=== PATIENT | female | born 1960 ===

== ENCOUNTER → 2017-03-23 | Outpatient (CLI) | payer BC ==
[2017-03-23 08:39] LABS: Basophils % (A) 1 %; CH 30.8; CHCM 33.2; Eosinophils # (A) 0.5 k/uL (0-0.7); Eosinophils % (A) 9 %; HCT 46.1 % (34.0-46.0); HDW 2.43; HGB 15.1 gm/dL (11.4-16.0); Luc # (Auto) 0.12; Luc % (Auto) 2; Lymphocytes # (A) 1.9 k/uL (1.0-4.8); Lymphocytes % (A) 36 %; MCH 30.5 pg (25.0-35.0); MCHC 32.8 g/dL (31.0-37.0); Mean Platelet Volume 7.3; Monocytes # (A) 0.3 k/uL (0-1.0); Monocytes % (A) 6 %; Neutrophils # (A) 2.3 k/uL (1.3-7.7); Neutrophils % (A) 45 %; RBC 4.96 m/uL (3.80-5.40); RDW 12.7 % (11.5-15.5); WBC 5.1 k/uL (3.8-10.6); WBC (Perox) 4.99
[2017-03-23 09:11] LABS: ALT 34 U/L (9-52); AST 29 U/L (14-36); Alkaline Phosphatase 70 U/L (38-126); Anion Gap 7 mmol/L; Blood Urea Nitrogen 19 mg/dL (7-17); Carbon Dioxide 31 mmol/L (22-30); Chloride 105 mmol/L (98-107); Cholesterol 185 mg/dL (<200); Glucose 91 mg/dL (74-99); HDL Cholesterol 59 mg/dL (40-60); Non-African American GFR(MDRD) >60 (>60 ml/min/1.73 sqM); Potassium 4.4 mmol/L (3.5-5.1); Sodium 143 mmol/L (137-145); Total Bilirubin 0.6 mg/dL (0.2-1.3); Total Protein 6.5 g/dL (6.3-8.2); Triglycerides 132 mg/dL (<150)
[2017-03-23 09:49] LABS: Erythrocyte Sedimentation Rate 2 mm/hr (0-20)
== END | disposition home or self-care (01) ==
LOC: LABWHC1 08:07
PROVIDERS: ATTEND Internal Medicine
DX: E78.2 Mixed hyperlipidemia (principal); I10 Essential (primary) hypertension; R32 Unspecified urinary incontinence
CPT/HCPCS: 36415; 80053; 80061; 85025; 85652

== ENCOUNTER 2017-06-15 10:55 | Emergency (ER) | payer BC, OTHER ==
[2017-06-15 11:01] VITALS: BP 137/64; PULSE 84; RESP 20; TEMP 97.8
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
[2017-06-15] MEDS ORDERED: ACET/COD 300 MG/30 MG STARTER PACK 6 TAB BTL PO STA (11:20)
[2017-06-15] MEDS ORDERED: IBUPROFEN 600 MG STARTER PACK 4 TAB BTL PO STA (11:20)
== END 2017-06-15 11:55 | disposition home or self-care (01) ==
LOC: EC 10:55
DX: T23.212A Burn of second degree of left thumb (nail), initial encounter (principal); T31.0 Burns involving less than 10% of body surface; I10 Essential (primary) hypertension; E78.5 Hyperlipidemia, unspecified; F32.9 Major depressive disorder, single episode, unspecified; Z88.2 Allergy status to sulfonamides; Z88.5 Allergy status to narcotic agent; Z79.899 Other long term (current) drug therapy; Z87.891 Personal history of nicotine dependence; X19.XXXA Contact with other heat and hot substances, initial encounter; Y93.G3 Activity, cooking and baking; Y99.0 Civilian activity done for income or pay; Y92.69 Other specified industrial and construction area as the place of occurrence of the external cause
CPT/HCPCS: 16020; 99283

== ENCOUNTER → 2018-11-26 | Outpatient (CLI) | payer BC ==
[2018-11-26 09:10] LABS: Basophils # (A) 0.1 k/uL (0-0.2); Basophils % (A) 1 %; Eosinophils # (A) 0.4 k/uL (0-0.7); Eosinophils % (A) 8 %; HGB 14.9 gm/dL (11.4-16.0); Lymphocytes # (A) 2.3 k/uL (1.0-4.8); Lymphocytes % (A) 44 %; MCH 29.6 pg (25.0-35.0); MCHC 31.7 g/dL (31.0-37.0); MCV 93.3 fL (80.0-100.0); Mean Platelet Volume 6.8; Monocytes # (A) 0.4 k/uL (0-1.0); Monocytes % (A) 8 %; Neutrophils % (A) 38 %; Platelet Count 324 k/uL (150-450); RBC 5.04 m/uL (3.80-5.40); WBC 5.2 k/uL (3.8-10.6)
[2018-11-26 09:21] LABS: Appearance,Urine Cloudy (Clear); Bacteria,Urine Occasional /hpf; Bilirubin,Urine Negative (Negative); Blood,Urine Negative (Negative); Color,Urine Yellow; Glucose,Urine (UA) Negative (Negative); Ketones,Urine Trace (Negative); Leukocyte Esterase,Urine Large (Negative); Mucus,Urine Rare /hpf; Nitrite,Urine Negative (Negative); Protein,Urine Negative (Negative); Specific Gravity,Urine 1.008 (1.001-1.035); Squamous Epithelial Cell,Urine 13 /hpf (0-4); Urobilinogen,Urine <2.0 mg/dL (<2.0); WBC,Urine 41 /hpf (0-5)
[2018-11-26 16:28] LABS: Albumin 4.4 g/dL (3.80-4.90); Albumin/Globulin Ratio 2.44 (1.60-3.17); Anion Gap 7.7 mmol/L (4.00-12.00); Calcium 9.3 mg/dL (8.7-10.3); Carbon Dioxide 29.3 mmol/L (21.6-31.8); Globulin 1.8 g/dL (1.6-3.3); LDL Cholesterol,Calculated 150.8 mg/dL (0.0-131.0); Potassium 3.9 mmol/L (3.5-5.5); Total Bilirubin 0.7 mg/dL (0.3-1.2); Total Protein 6.2 g/dL (6.2-8.2); VLDL Calculation 30.2 mg/dL (5.00-40.00)
[2018-11-26 16:38] LABS: T4, Free (Free Thyroxine) 1.2 ng/dL (0.80-1.80)
== END | disposition home or self-care (01) ==
LOC: LABWHC1 08:38
PROVIDERS: ATTEND Internal Medicine
DX: E78.2 Mixed hyperlipidemia (principal); H92.02 Otalgia, left ear; I10 Essential (primary) hypertension
CPT/HCPCS: 36415; 80053; 80061; 81001; 84439; 84443; 85025

== ENCOUNTER → 2019-08-14 | Day surgery (SDC) | payer BC ==
[2019-08-12 14:04] VITALS: BMI 36.6
[~2019-08-14] MED LIST: LACTATED RINGERS 1,000 ML IV ONE; LACTATED RINGERS 1,000 ML IV SCH; LIDOCAINE 1% 20 ML VIAL (10MG/ML) FOR IV START INTRADERMA PRN; LIDOCAINE 1% INJ 10MG/ML (20 ML MDV) ONE; PROPOFOL 10 MG/ML 20 ML VIAL IV ONE
[2019-08-14 08:43] VITALS: TEMP 97.6
[2019-08-14 08:53] LABS: Glucose,Whole Blood 80 mg/dL (75-99)
--- NOTE | 2019-08-14 09:29 | P.PCN ---
Date of Procedure: 08/14/19 Procedure(s) Performed: BRIEF HISTORY: Patient is a 59-year-old pleasant female scheduled for an elective colonoscopy as a part of evaluation of prior history of colon polyps. Last colonoscopy was in 2013. PROCEDURE PERFORMED: Colonoscopy. PREOPERATIVE DIAGNOSIS: History of colon polyps. IV sedation per Anesthesia. PROCEDURE: After informed consent was obtained, the patient, was brought into the endoscopy unit. IV sedation was administered by Anesthesia under continuous monitoring. Digital rectal examination was normal. Initially the Olympus CF-160 flexible video colonoscope was then inserted in the rectum, gradually advanced into the cecum without any difficulty. Careful examination was performed as the scope was gradually being withdrawn. Ileocecal valve and the appendiceal orifice were visualized and appeared normal. Prep was excellent. Mucosa of the cecum, ascending colon, transverse colon, descending colon, sigmoid colon, and rectum appeared normal. Scattered sigmoidal diverticulosis Retroflexion was performed in the rectum and no lesions were seen. The patient tolerated the procedure well. IMPRESSION: Normal-appearing colon from rectum to cecum with no evidence of colorectal neoplasia. RECOMMENDATIONS: Findings of this examination were discussed with the patient as well as her family. She was advised to have a repeat screening colonoscopy in 5 years from now because of the prior history of colon polyps..
[2019-08-14 09:47] VITALS: BP 133/70; PULSE 66; RESP 17
== END ==
LOC: ORWHC2ENDO 08:24
PROVIDERS: ATTEND Internal Medicine Gastroenterology
DX: Z12.11 Encounter for screening for malignant neoplasm of colon (principal); K57.30 Diverticulosis of large intestine without perforation or abscess without bleeding; Z86.010 Personal history of colon polyps; I10 Essential (primary) hypertension; F32.9 Major depressive disorder, single episode, unspecified; F41.9 Anxiety disorder, unspecified; Z79.891 Long term (current) use of opiate analgesic; Z79.899 Other long term (current) drug therapy; Z88.5 Allergy status to narcotic agent; Z88.2 Allergy status to sulfonamides
CPT/HCPCS: J2001; J2704; G0105; 45378

== ENCOUNTER → 2019-11-16 | Outpatient (CLI) | payer BC | LOC: LABWHC1 09:35 | PROVIDERS: ATTEND Otolaryngology | DX: J30.89 Other allergic rhinitis (principal) | CPT/HCPCS: 36415; 86001 ==

== ENCOUNTER 2020-05-17 22:41 | Emergency (ER) | payer BC ==
[2020-05-17 22:51] VITALS: RESP 18
[2020-05-17] MEDS ORDERED: SODIUM CHLORIDE 0.9% 1,000 ML IV ONE (23:23)
[2020-05-17] MEDS ORDERED: SODIUM CHLORIDE 0.9% 1,000 ML IV SCH (23:30)
[2020-05-17] MEDS ORDERED: KETOROLAC 15 MG/ML 1 ML VIAL IVP STA (23:41)
[2020-05-18 00:02] LABS: Basophils # (A) 0.1 k/uL (0-0.2); Basophils % (A) 1 %; Eosinophils # (A) 0.1 k/uL (0-0.7); Eosinophils % (A) 1 %; HCT 44.3 % (34.0-46.0); HGB 14.6 gm/dL (11.4-16.0); Lymphocytes # (A) 1.5 k/uL (1.0-4.8); Lymphocytes % (A) 12 %; MCH 30.7 pg (25.0-35.0); MCHC 32.9 g/dL (31.0-37.0); MCV 93.2 fL (80.0-100.0); Mean Platelet Volume 7.3; Monocytes # (A) 0.6 k/uL (0-1.0); Monocytes % (A) 5 %; Neutrophils # (A) 9.7 k/uL (1.3-7.7); Neutrophils % (A) 81 %; Platelet Count 314 k/uL (150-450); RBC 4.75 m/uL (3.80-5.40); RDW 12.9 % (11.5-15.5); WBC 12.1 k/uL (3.8-10.6)
[2020-05-18 00:06] LABS: Amorphous Sediment,Urine Rare /hpf; Appearance,Urine Cloudy (Clear); Bacteria,Urine Rare /hpf; Bilirubin,Urine Negative (Negative); Blood,Urine Negative (Negative); Color,Urine Yellow; Glucose,Urine (UA) Negative (Negative); Ketones,Urine 1+ (Negative); Leukocyte Esterase,Urine Negative (Negative); Mucus,Urine Rare /hpf; Nitrite,Urine Negative (Negative); PH, Urine 6.5 (5.0-8.0); Protein,Urine Negative (Negative); RBC,Urine 8 /hpf (0-5); Specific Gravity,Urine 1.019 (1.001-1.035); Squamous Epithelial Cell,Urine 1 /hpf (0-4); Urobilinogen,Urine <2.0 mg/dL (<2.0); WBC,Urine 4 /hpf (0-5)
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
[2020-05-18 00:11] LABS: Albumin 4.3 g/dL (3.5-5.0); Calcium 9.3 mg/dL (8.4-10.2); Potassium 4.5 mmol/L (3.5-5.1); Total Bilirubin 0.5 mg/dL (0.2-1.3); Total Protein 6.7 g/dL (6.3-8.2)
[2020-05-18] MEDS ORDERED: ONDANSETRON 4 MG/2 ML VIAL IVP STA (00:26)
--- NOTE | 2020-05-18 01:22 | CT ---
EXAMINATION TYPE: CT abdomen pelvis w con DATE OF EXAM: 05/18/2020 COMPARISON: None HISTORY: Lower Abd Pain, Urine Retention CT DLP: 2514.4 mGycm Automated exposure control for dose reduction was used. CONTRAST: Performed with IV Contrast, patient injected with 100 mL of Isovue 300. Lung bases are clear of consolidation. There is no pleural effusion. There is mild subsegmental atele ctasis at the lung bases. Heart is normal. There is no pericardial effusion. Liver gallbladder spleen stomach pancreas appear normal. Bile ducts are not dilated. There is no adrenal mass. Kidneys show satisfactory contrast opacification. There is right-sided hydr onephrosis and hydroureter. There is 4 mm calculus in the distal right ureter. Delayed images show a delayed right side pyelogram. There is normal excretion on the left side. There is 1 cm cortical cyst lower pole left kidney. There is no evidence of a solid renal mass. There is no retroperitoneal abbi opathy. Appendix is posterior and appears normal. There are clips from tubal ligation. There is no inguinal h ernia. Uterus is anteverted. There is no pelvic mass. There is no free fluid in the pelvis. There is Lynn catheter in the urinary bladder. Bladder is empty. There is no mesenteric edema. There is no ascites or free air. There is no bowel obstruction. Lumbar vertebra have fairly normal alignment. Disc spaces are fairly normal. There is a few millimete r anterior subluxation of L4 in relation L5. There is no spondylolysis. Bony pelvis is intact. Hip reagan ints are intact. IMPRESSION: Right-sided hydronephrosis and hydroureter with obstructing calculus in the distal right ureter close to the ureterovesical junction. Minimal sigmoid diverticulosis without diverticulitis. Normal appendix.
[2020-05-18] MEDS ORDERED: TAMSULOSIN 0.4 MG CAP.ER.24H PO STA (01:23)
[2020-05-18] MEDS ORDERED: MORPHINE SULFATE 4 MG/ML SYRINGE IVP STA (01:48)
[2020-05-18 02:03] VITALS: BP 145/84; PULSE 86; TEMP 97.5
[2020-05-18] MEDS ORDERED: ONDANSETRON 4 MG ODT STARTER PACK 2 TAB BTL PO STA (02:13)
== END 2020-05-18 02:55 | disposition home or self-care (01) ==
LOC: EC 22:41
DX: N20.1 Calculus of ureter (principal); R19.7 Diarrhea, unspecified; I10 Essential (primary) hypertension; F41.9 Anxiety disorder, unspecified; F32.9 Major depressive disorder, single episode, unspecified; Z79.899 Other long term (current) drug therapy; Z88.2 Allergy status to sulfonamides; Z88.5 Allergy status to narcotic agent; Z98.51 Tubal ligation status; Z87.891 Personal history of nicotine dependence
CPT/HCPCS: 36415; 80053; 85025; 81001; 74177; 99285; 96374; 96375 ×2; 96361 ×2; J2270; J2405; J1885; S0119; Q9967

== ENCOUNTER 2020-05-20 16:20 | Emergency (ER) | payer BC ==
[2020-05-20 16:55] VITALS: RESP 18
[2020-05-20] MEDS ORDERED: SODIUM CHLORIDE 0.9% 1,000 ML IV STA (17:10)
[2020-05-20] MEDS ORDERED: SODIUM CHLORIDE 0.9% 500 ML 500 ML IV STA (17:10)
[2020-05-20] MEDS ORDERED: KETOROLAC 15 MG/ML 1 ML VIAL IVP STA (17:33)
[2020-05-20] MEDS ORDERED: ONDANSETRON 4 MG/2 ML VIAL IVP STA (17:33)
[2020-05-20 17:59] LABS: Basophils # (A) 0.1 k/uL (0-0.2); Basophils % (A) 1 %; Eosinophils # (A) 0.2 k/uL (0-0.7); Eosinophils % (A) 2 %; HCT 42.1 % (34.0-46.0); HGB 13.9 gm/dL (11.4-16.0); Lymphocytes # (A) 1.5 k/uL (1.0-4.8); Lymphocytes % (A) 14 %; MCH 30.4 pg (25.0-35.0); MCHC 32.9 g/dL (31.0-37.0); MCV 92.3 fL (80.0-100.0); Mean Platelet Volume 7.6; Monocytes # (A) 0.8 k/uL (0-1.0); Monocytes % (A) 8 %; Neutrophils # (A) 7.9 k/uL (1.3-7.7); Neutrophils % (A) 74 %; Platelet Count 272 k/uL (150-450); RBC 4.56 m/uL (3.80-5.40); RDW 12.8 % (11.5-15.5); WBC 10.7 k/uL (3.8-10.6)
[2020-05-20 18:06] LABS: Albumin 4.2 g/dL (3.5-5.0); Calcium 8.8 mg/dL (8.4-10.2); Total Protein 6.7 g/dL (6.3-8.2)
[2020-05-20 18:36] LABS: Appearance,Urine Clear (Clear); Bacteria,Urine Rare /hpf; Bilirubin,Urine Negative (Negative); Blood,Urine Negative (Negative); Color,Urine Light Yellow; Glucose,Urine (UA) Negative (Negative); Ketones,Urine 1+ (Negative); Leukocyte Esterase,Urine Small (Negative); Mucus,Urine Rare /hpf; Nitrite,Urine Negative (Negative); Protein,Urine Negative (Negative); RBC,Urine 1 /hpf (0-5); Squamous Epithelial Cell,Urine 5 /hpf (0-4); Urobilinogen,Urine <2.0 mg/dL (<2.0); WBC,Urine 7 /hpf (0-5)
--- NOTE | 2020-05-20 19:04 | XR ---
EXAMINATION TYPE: XR KUB DATE OF EXAM: 05/20/2020 COMPARISON: NONE HISTORY: Kidney stone. Pain. TECHNIQUE: 2 views upright FINDINGS: There is no sign of intestinal obstruction or pneumoperitoneum. Fecal pattern is normal. Th ere are clips from tubal ligation. There are no pathologic calcifications over the kidneys. There are small phleboliths in the pelvis. Lung bases are clear. IMPRESSION: Nonacute abdomen.
[2020-05-20] MEDS ORDERED: traMADol 50 MG STARTER PACK 3 TAB BTL PO STA (19:29)
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
[2020-05-20 19:40] VITALS: BP 139/82; PULSE 72; TEMP 98.7
== END 2020-05-20 19:39 | disposition home or self-care (01) ==
LOC: EC 16:20
DX: N20.0 Calculus of kidney (principal); F41.9 Anxiety disorder, unspecified; F32.9 Major depressive disorder, single episode, unspecified; E78.5 Hyperlipidemia, unspecified; I10 Essential (primary) hypertension; Z79.899 Other long term (current) drug therapy; Z88.2 Allergy status to sulfonamides; Z88.5 Allergy status to narcotic agent; Z86.69 Personal history of other diseases of the nervous system and sense organs; Z87.891 Personal history of nicotine dependence
CPT/HCPCS: 36415; 80053; 82150; 83690; 85025; 81001; 74018; 99284; 96374; 96375; 96361; J2405; J1885

== ENCOUNTER 2020-05-30 11:47 | Day surgery (SDC) | payer BC ==
[2020-05-27 09:10] VITALS: BMI 38.7
--- NOTE | 2020-05-29 22:18 | P.HPIHPCON ---
History of Present Illness H&P Date: 05/29/20 Ms Garcia is a 60 yo female with hx of 4 mm right sided distal ureteral stone, she has failed medical expulsive therapy. She had two ED presentation for pain secondary to her stones. Surgical option was discussed with her. I discussed the risk and benefit of each approach. she agreed to proceed with right sided ureteroscopy. Discussed with her the risk of bleeding, infection and ureteral injury. She understood all risks and agreed to proceed Consent for Procedure: I have explained the operation/procedure to the patient, including the risks, benefits, side effects, alternative therapies (including not receiving the proposed treatment or service), the likelihood of the patient achieving his/her goals, and potential recuperation problems for the procedure/sedation/analgesia, as well as any blood products, if indicated. I also explained to the patient the risks, benefits and side effects of the alternatives, as well as the risks related to not receiving the proposed procedure, care, treatment, or services. - Constitutional Constitutional: Denies chills, Denies fever Past Medical History Past Medical History: Cancer, Hyperlipidemia, Hypertension, Osteoarthritis (OA), Sleep Apnea/CPAP/BIPAP Additional Past Medical History / Comment(s): HX OF MIGRAINES,hypoglycemia, colon polyps, uses CPAP, past hx. skin cancer, IBS, kidney stones, brain aneurysm-neuro. monitors-has had for 18 yrs. History of Any Multi-Drug Resistant Organisms: None Reported Past Surgical History: Ear Surgery, Orthopedic Surgery, Tubal Ligation, Uterine Ablation Additional Past Surgical History / Comment(s): HAS HAD 2 SX LEFT EAR, HAS A NON METAL IMPLANT. HAS HAD LEFT BREAST BX X2, HAS HAD 2 SX ON LEFT KNEE, RT CARPAL TUNNEL Past Anesthesia/Blood Transfusion Reactions: Postoperative Nausea & Vomiting (PONV) Smoking Status: Former smoker - Past Family History Son(s) Family Medical History: Blood Disorder, Deep Vein Thrombosis (DVT) Father Family Medical History: Cancer Sister(s) Additional Family Medical History / Comment(s): Factor 5 Leiden Medications and Allergies Home Medications Medication Instructions Recorded Confirmed Type Losartan [Cozaar] 50 mg PO QAM 04/02/16 05/27/20 History Multivitamins, Thera [Multivitamin] 1 tab PO DAILY 04/02/16 05/27/20 History Venlafaxine HCl [Effexor XR] 225 mg PO QAM 04/02/16 05/27/20 History Zolpidem [Ambien] 5 mg PO HS 04/02/16 05/27/20 History traMADol HCl [Ultram] 50 mg PO Q6H PRN 04/02/16 05/27/20 History ALPRAZolam [Xanax] 0.25 mg PO HS 08/12/19 05/27/20 History amLODIPine [Norvasc] 5 mg PO HS 08/12/19 05/27/20 History HYDROcodone/APAP 5-325MG [[place] 1 tab PO Q6HR PRN 3 Days #12 tab 05/18/2005/10 Rx 5-325] Ondansetron Odt [Zofran Odt] 4 mg PO Q8HR PRN #12 tab 05/18/20 05/27/20 Rx Tamsulosin [Flomax] 0.4 mg PO DAILY #7 cap 05/18/20 05/27/20 Rx Allergies Allergy/AdvReac Type Severity Reaction Status Date / Time Sulfa (Sulfonamide Allergy Itching/yeast Verified 05/27/20 08:37 Antibiotics) infection morphine AdvReac Nausea & Verified 05/27/20 08:37 Vomiting Surgical - Exam - General well developed, well nourished, no distress, moderate pain - Respiratory normal expansion, normal respiratory effort - Abdomen Abdomen: soft, non tender - Psychiatric oriented to time, oriented to person, oriented to place Assessment and Plan Assessment: 60 yo with hx of 4mm right sided ureteral stone -OR for right sided ureteroscopy, holmium laser lithotripsy, stone basketting and stent placement
[2020-05-30 12:20] VITALS: TEMP 98.1
[2020-05-30] MEDS ORDERED: ONDANSETRON 4 MG/2 ML VIAL ONE (12:35)
[2020-05-30] MEDS: LACTATED RINGERS 1,000 ML IV SCH ×2 (12:37→14:40)
[2020-05-30] MEDS ORDERED: LIDOCAINE 1% (10MG/ML) FOR IV START INTRADERMA ONE (12:37)
[2020-05-30] MEDS ORDERED: DEXAMETHASONE SOD PHOSPHATE 10 MG/ML 1 ML VIAL IV ONE (12:38)
[2020-05-30 12:40] LABS: Glucose,Whole Blood 95 mg/dL (75-99)
[2020-05-30] MEDS ORDERED: LIDOCAINE 1% INJ 10MG/ML (20 ML MDV) ONE (14:43)
[2020-05-30] MEDS ORDERED: ePHEDrine SULFATE/0.9% NACL/PF 50 MG/5 ML SYRINGE IV ONE (14:43)
[2020-05-30] MEDS ORDERED: SUCCINYLCHOLINE CHLORIDE 100 MG/5 ML SYR IV ONE (14:43)
[2020-05-30] MEDS ORDERED: MIDAZOLAM 2 MG/2 ML VIAL ONE (14:43)
[2020-05-30] MEDS ORDERED: fentaNYL (PF) 50 MCG/ML 2 ML AMP ONE (14:43)
[2020-05-30] MEDS ORDERED: PROPOFOL 10 MG/ML 20 ML VIAL IV ONE (14:43)
[2020-05-30] MEDS ORDERED: IOPAMIDOL-370 50ML BTL IRRIGATION ONE (15:20)
--- NOTE | 2020-05-30 15:53 | P.OP ---
Date of Procedure: 05/30/20 Preoperative Diagnosis: right-sided ureteral stone Postoperative Diagnosis: same Procedure(s) Performed: cystoscopy, right ureteroscopy, holmium laser lithotripsy, stone basketing and stent placement Implants: 6-Turkmen by 26 cm stent Anesthesia: ALYSE Surgeon: Rommel Rosen Estimated Blood Loss (ml): 1 Pathology: other (right ureteral calculi) Condition: stable Disposition: PACU Indications for Procedure: Ms Garcia is a 60 yo female with hx of 4 mm right sided distal ureteral stone, she has failed medical expulsive therapy. She had two ED presentation for pain secondary to her stones. Surgical option was discussed with her. I discussed the risk and benefit of each approach. she agreed to proceed with right sided ureteroscopy. Discussed with her the risk of bleeding, infection and ureteral injury. She understood all risks and agreed to proceed Operative Findings: right ureteral stone, in the distal ureter. With ureteral edema at the site of stone Description of Procedure: she was brought to the operating room, general anesthesia was induced. She was prepped and draped in sterile fashion a placement dorsal lithotomy position. A cystoscopy fitted with a 21 sheath was inserted per urethra, cystoscopy was performed showed no abnormality within the bladder. next a semirigid ureteroscope was inserted per urethra, I attempted to advance the ureteroscope up the right ureteral orifice but there was ureteral orifice narrowing. At this time a sensor wire was advanced through the ureteroscope and up into the renal pelvis. The ureteroscope was withdrawn with the wire in place. Next the cystoscope was backloaded over the wire. Next a balloon dilator was passed over the wire and into the distal ureter and dilated under fluoroscopy. Next the balloon dilator was removed with the wire in place. Next a semirigid ureteroscope was inserted per urethra and advanced up the right ureteral orifice, stone was encountered in the distal ureter, there was ureteral edema surrounding the stone. Stone was fragmented into multiple fragments using the holmium laser. The fragments were removed using the stone basket. At this time this ureteroscope was advanced all the way up to the UPJ without any evidence of additional stones, pullback ureteroscopy was performed showed no injury to ureter or sizable ureteral stone fragments. Next a 6-Turkmen by 26cm stent was passed over the wire, the proximal curl was visualized on fluoroscopy and the distal curl was visualized using the cystoscope. The bladder was emptied and the case. The past the patient the posterior was taken to PACU in stable condition
[2020-05-30] MEDS ORDERED: LACTATED RINGERS 1,000 ML IV ONE (16:45)
[2020-05-30] MEDS ORDERED: HYDROmorphone 1 MG/ML 1 ML SYRINGE IVP ONE (16:48)
[2020-05-30 17:12] VITALS: RESP 18
[2020-05-30 17:21] VITALS: BP 135/80; PULSE 87
--- NOTE | 2020-05-30 18:11 | FL ---
EXAMINATION TYPE: FL guidance operating room DATE OF EXAM: 05/30/2020 FLUOROSCOPY Fluoroscopy time of 5 seconds was used during right kidney stone removal utilizing lithotripsy. 2 im age/s document/s the procedure.
== END 2020-05-30 17:56 | disposition home or self-care (01) ==
LOC: OR 11:47
PROVIDERS: ATTEND Urology
DX: N20.1 Calculus of ureter (principal); Z87.442 Personal history of urinary calculi; I10 Essential (primary) hypertension; E78.5 Hyperlipidemia, unspecified; M19.90 Unspecified osteoarthritis, unspecified site; K58.9 Irritable bowel syndrome, unspecified; G47.30 Sleep apnea, unspecified; F41.9 Anxiety disorder, unspecified; F32.9 Major depressive disorder, single episode, unspecified; Z86.010 Personal history of colon polyps; Z85.828 Personal history of other malignant neoplasm of skin; Z98.51 Tubal ligation status; Z98.890 Other specified postprocedural states; Z99.89 Dependence on other enabling machines and devices; Z87.891 Personal history of nicotine dependence; Z88.2 Allergy status to sulfonamides; Z88.5 Allergy status to narcotic agent; Z79.891 Long term (current) use of opiate analgesic; Z79.899 Other long term (current) drug therapy; Z82.49 Family history of ischemic heart disease and other diseases of the circulatory system
CPT/HCPCS: 82365; 52356; C2625; C1894; C1758; C1769; J2250; J1100; J0690; J2405; J2001; J3010; J1170; J0330; J2704; Q9967

== ENCOUNTER → 2020-07-25 | Outpatient (CLI) | payer BC ==
--- NOTE | 2020-07-25 09:36 | US ---
EXAMINATION TYPE: US kidneys/renal and bladder DATE OF EXAM: 07/25/2020 COMPARISON: CT 05/18/20, CLINICAL HISTORY: N20.0 CALCULUS OF KIDNEYS. EXAM MEASUREMENTS: Right Kidney: 11.0 x 5.5 x 5.0 cm Left Kidney: 10.6 x 6.1 x 5.6 cm Post Void Residual Volume: 12.0 mL Right Kidney: No hydronephrosis or masses seen Left Kidney: No hydronephrosis or masses seen, lower pole cyst =1.1 x 1.2 x 0.9cm Bladder: ? debris posterior, right Bilateral Jets seen: Yes Normal Post Void Residual: Yes IMPRESSION: 1. No hydronephrosis or nephrolithiasis. There is suggestion of possible debris within the bladder or bladder wall thickening which potentially could be artifactual. Correlate with urinalysis and cystos copy to exclude other etiologies as clinically warranted.
== END | disposition home or self-care (01) ==
LOC: RADUSWWP 08:57
PROVIDERS: ATTEND Urology
DX: N20.0 Calculus of kidney (principal)
CPT/HCPCS: 76770

== ENCOUNTER → 2020-08-15 | Outpatient (CLI) | payer BC ==
[2020-08-15 09:35] LABS: Basophils % (A) 1 %; Eosinophils # (A) 0.4 k/uL (0-0.7); Eosinophils % (A) 9 %; HCT 44.6 % (34.0-46.0); Lymphocytes # (A) 1.7 k/uL (1.0-4.8); Lymphocytes % (A) 36 %; MCH 31.3 pg (25.0-35.0); MCHC 33.6 g/dL (31.0-37.0); Mean Platelet Volume 7.3; Monocytes # (A) 0.3 k/uL (0-1.0); Monocytes % (A) 7 %; Neutrophils # (A) 2.1 k/uL (1.3-7.7); Neutrophils % (A) 45 %; Platelet Count 287 k/uL (150-450); RBC 4.79 m/uL (3.80-5.40); RDW 12.7 % (11.5-15.5); WBC 4.6 k/uL (3.8-10.6)
[2020-08-15 16:24] LABS: African American GFR (CKD) 91.6 (60.0-200.0); Albumin 4.5 g/dL (3.80-4.90); Albumin/Globulin Ratio 2.65 (1.60-3.17); Anion Gap 10.9 mmol/L (4.00-12.00); BUN/Creat Ratio 22.5 Ratio (12.00-20.00); Calcium 9.2 mg/dL (8.7-10.3); Carbon Dioxide 24.1 mmol/L (21.6-31.8); Chol/HDL Ratio 4.37; Globulin 1.7 g/dL (1.6-3.3); Potassium 4.2 mmol/L (3.5-5.5); Total Bilirubin 0.7 mg/dL (0.3-1.2); Total Protein 6.2 g/dL (6.2-8.2)
== END | disposition home or self-care (01) ==
LOC: LABWHC1 08:43
PROVIDERS: ATTEND Internal Medicine
DX: I10 Essential (primary) hypertension (principal); E78.2 Mixed hyperlipidemia; F51.01 Primary insomnia; F41.8 Other specified anxiety disorders; N20.0 Calculus of kidney; M17.12 Unilateral primary osteoarthritis, left knee
CPT/HCPCS: 36415; 80053; 80061; 84439; 84443; 85025

== ENCOUNTER → 2021-01-26 | Outpatient (CLI) | payer BC ==
[2021-01-26 16:15] LABS: HCT 42.5 % (37.2-46.3); HGB 13.7 g/dL (12.0-15.0); MCHC 32.2 g/dL (32.0-37.0); MCV 96.2 fL (80.0-97.0); Mean Platelet Volume 10.4 fL (9.5-12.2); Platelet Count 296 X 10*3/uL (140-440); RBC 4.42 X 10*6/uL (4.10-5.20); RDW 12.7 % (11.5-14.5); WBC 6.41 X 10*3/uL (4.50-10.00)
== END | disposition home or self-care (01) ==
LOC: LABWHC1 10:01
PROVIDERS: ATTEND Orthopaedic Surgery
DX: M17.12 Unilateral primary osteoarthritis, left knee (principal); I10 Essential (primary) hypertension; E78.5 Hyperlipidemia, unspecified; Z87.891 Personal history of nicotine dependence
CPT/HCPCS: 36415; 85027; 87070

== ENCOUNTER → 2021-02-10 | Outpatient (CLI) | payer BC ==
--- NOTE | 2021-02-10 16:20 | MR ---
MRI CERVICAL SPINE: CLINICAL HISTORY: Cervicalgia. Spondylolisthesis. Disc degeneration C6-C7 level. Radiculopathy. TECHNIQUE: Multiplanar, multisequence imaging of the cervical spine is performed without IV contrast. COMPARISON: None. FINDINGS: Sagittal images of the cervical spine show the craniocervical junction to appear within nor mal limits. The cervical and upper thoracic spinal cord is normal in caliber and signal. Alignment i s straightened with slight grade 1 anterolisthesis C3 on C4 and C5 on C6 and subtle grade 1 retrolist hesis C6 on C7. The vertebral body heights are normal. Mild disc space narrowing C5-C6 level. Mild t o moderate disc space narrowing C6-C7 level The bone marrow signal intensity is within normal limits. Axial images show C2-C3 level to appear within normal limits. Axial images at C3-C4 levels with spondylolisthesis with broad-based posterior disc protrusion mildly effacing anterior thecal sac and causing mild to moderate right-sided neural foraminal narrowing Axial images at C4-C5 level show broad-based posterior disc protrusion and uncovertebral facet degene rative changes, there is mild bilateral neural foraminal narrowing and minimal anterior spinal canal effacement. Axial images at C5-C6 level shows spondylolisthesis with left paracentral disc protrusion, there is e ffacement of anterior thecal sac, there is moderate left and mild right-sided neural foraminal narrow ing. Axial images at C6-C7 level shows a lobulated left paracentral disc protrusion effacing the anterolat eral thecal sac, there is [id number] bilateral neural foraminal narrowing. Axial images at C7-T1 level show left-sided facet arthropathy and ligamentum flavum hypertrophy causi ng moderate left-sided neural foraminal narrowing. IMPRESSION: Straightening of cervical spine with multilevel spondylolisthesis and degenerative change s as detailed above..
--- NOTE | 2021-02-11 06:00 | MR ---
EXAMINATION TYPE: MR brain wo/w con DATE OF EXAM: 02/10/2021 COMPARISON: None HISTORY: Pain in neck, right shoulder, and right arm for years. Checking to make sure symptoms aren't from an aneurysm. CONTRAST: Standard multiplanar, multisequence MRI departmental protocol utilizing 11 mL intravenous Gadavist ga dolinium contrast. Ventricles and sulci appear normal. There is no mass effect nor midline shift. The diffusion images s how no evidence of an acute infarct. Mccauley-white matter structures have overall fairly normal signal p attern for the patient's age. There is no evidence of cerebral edema. There are some tiny 2 to 3 mm f oci of increased signal at the mccauley-white matter junction of both cerebral hemispheres. Total number is approximately 10. Sella turcica appears normal. Corpus callosum appears normal. Pituitary stalk is in the midline. Brai nstem is intact. There is normal enhancement of the venous sinuses. IMPRESSION: There are some tiny scattered white matter high signal foci of uncertain and doubtful significance. O therwise negative MR scan of the brain. No evidence of cortical infarct.
== END | disposition home or self-care (01) ==
LOC: RADMRIMAIN 14:30
PROVIDERS: ATTEND Orthopaedic Surgery Orthopaedic Surgery of the Spine
DX: M43.12 Spondylolisthesis, cervical region (principal); M47.23 Other spondylosis with radiculopathy, cervicothoracic region; M99.71 Connective tissue and disc stenosis of intervertebral foramina of cervical region; M50.123 Cervical disc disorder at C6-C7 level with radiculopathy; R90.82 White matter disease, unspecified
CPT/HCPCS: 70553; 72141; A9585

== ENCOUNTER → 2021-06-30 | Outpatient (CLI) | payer BC ==
[2021-06-30 09:55] LABS: C Reactive Protein <0.5 mg/dL (<1.0)
[2021-06-30 13:01] LABS: Glucose 2 Hour 156 mg/dL
[2021-06-30 19:49] LABS: Protein, Total 6.6 g/dL (6.2-8.2)
== END | disposition home or self-care (01) ==
LOC: LABWHC1 08:24
PROVIDERS: ATTEND Psychiatry & Neurology Neurology
DX: G62.9 Polyneuropathy, unspecified (principal)
CPT/HCPCS: 36415; 82164; 82607; 82947; 82950; 84165; 84207; 84425; 84446; 86140; 86235; 86334

== ENCOUNTER → 2021-10-30 | Outpatient (CLI) | payer BC ==
--- NOTE | 2021-10-30 11:31 | CT ---
EXAMINATION TYPE: CT sinus wo con DATE OF EXAM: 10/30/2021 COMPARISON: 01/10/2016 HISTORY: Chronic sinusitis x [address] DLP: 636.4 mGycm. Automated Exposure Control for Dose Reduction was Utilized. TECHNIQUE: CT scan of the sinuses is performed without contrast, axial images are obtained, coronal r eformatted images are also reviewed. FINDINGS: The paranasal sinuses including the frontal, ethmoid, sphenoid, and maxillary sinuses bila terally are well-aerated without abnormal opacification. The ostiomeatal complex is patent bilateral ly on the coronal images. Postsurgical changes involving the left temporal bone. Dental artifact does limit examination. Nasal septal deviation noted.. The globes are intact bilaterally. Slight asymmetry of the nasopharynx on t he left IMPRESSION: 1. The sinuses are clear and the ostiomeatal complex is patent bilaterally. 2. There is asymmetry of the nasopharynx and fossa of Rosenmuller with greater prominence on the left correlate clinically to exclude mucosal lesion.
[2021-10-31 01:57] LABS: Immunoglobulin A 87.5 mg/dL (60.0-350.0); Immunoglobulin M 38.8 mg/dL (40.0-280.0)
[2021-10-31 12:46] LABS: IgG Subclass 1 386.5 mg/dL (382.40-928.60); IgG Subclass 2 127.5 mg/dL (241.80-700.30); IgG Subclass 3 11.5 mg/dL (21.82-176.00)
== END | disposition home or self-care (01) ==
LOC: RADCTMAIN 10:44
PROVIDERS: ATTEND Otolaryngology
DX: J32.9 Chronic sinusitis, unspecified (principal)
CPT/HCPCS: 70486; 82784; 82787

== ENCOUNTER → 2021-11-17 | Outpatient (CLI) | payer BC ==
[2021-11-17 14:45] LABS: Basophils # (A) 0.04 X 10*3/uL (0.00-0.10); Basophils % (A) 0.7 %; Eosinophils # (A) 0.18 X 10*3/uL (0.04-0.35); Eosinophils % (A) 3.2 %; HCT 43.1 % (37.2-46.3); HGB 14.1 g/dL (12.0-15.0); Immature Grans, Automated 0.5 %; Lymphocytes # (A) 1.68 X 10*3/uL (0.90-5.00); Lymphocytes % (A) 30.3 %; MCH 30.7 pg (27.0-32.0); MCHC 32.7 g/dL (32.0-37.0); MCV 93.9 fL (80.0-97.0); Mean Platelet Volume 10.1 fL (9.5-12.2); Monocytes # (A) 0.54 X 10*3/uL (0.20-1.00); Monocytes % (A) 9.7 %; NRBC Per 100 WBC 0 /100 WBCS (0.0-0.0); Neutrophils # (A) 3.07 X 10*3/uL (1.80-7.70); Neutrophils % (A) 55.6 %; Platelet Count 290 X 10*3/uL (140-440); RBC 4.59 X 10*6/uL (4.10-5.20); RDW 13.1 % (11.5-14.5); WBC 5.54 X 10*3/uL (4.50-10.00)
[2021-11-17 14:53] LABS: Immunoglobulin A 90.8 mg/dL (60.0-350.0)
[2021-11-17 15:12] LABS: Immunoglobulin M 19.6 mg/dL (40.0-280.0)
[2021-11-17 21:08] LABS: Elm IgE <0.10 kU/L; Maple (Box Elder) IgE <0.10 kU/L; Oak IgE <0.10 kU/L; Ragweed,Common IgE <0.10 kU/L
[2021-11-17 21:10] LABS: Cat Epith & Dander IgE <0.10 kU/L; Cladosporian herbarum IgE <0.10 kU/L; Dermato. farinae IgE <0.10 kU/L; Dog Dander IgE <0.10 kU/L
[2021-11-17 21:11] LABS: Aspergillus fumagatus IgE <0.10 kU/L
[2021-11-18 13:45] LABS: T4/T8 Ratio (CD4:CD8) 1.2 (1.0-3.7)
== END | disposition home or self-care (01) ==
LOC: LABWHC1 09:56
PROVIDERS: ATTEND Internal Medicine
DX: J30.9 Allergic rhinitis, unspecified (principal); R53.83 Other fatigue
CPT/HCPCS: 36415; 82784; 82787; 85025; 86003; 86317; 86355; 86357; 86359; 86360

== ENCOUNTER → 2022-01-12 | Outpatient (CLI) | payer BC | END | disposition home or self-care (01) | LOC: LABWHC1 09:50 | PROVIDERS: ATTEND Physician Assistant | DX: R53.83 Other fatigue (principal) | CPT/HCPCS: 36415; 86317 ==

== ENCOUNTER → 2022-03-07 | Outpatient (CLI) | payer BC | END | disposition home or self-care (01) | LOC: LABWHC1 08:47 | PROVIDERS: ATTEND Internal Medicine | DX: R53.83 Other fatigue (principal) | CPT/HCPCS: 36415 ==

== ENCOUNTER → 2022-03-21 | Outpatient (CLI) | payer BC ==
[2022-03-22 01:58] LABS: Immunoglobulin A 83.5 mg/dL (60.0-350.0)
== END | disposition home or self-care (01) ==
LOC: LABWHC1 14:20
PROVIDERS: ATTEND Internal Medicine
DX: R53.83 Other fatigue (principal)
CPT/HCPCS: 36415; 82784

== ENCOUNTER → 2022-08-28 | Outpatient (CLI) | payer BC | END | disposition home or self-care (01) | LOC: LABWHC1 12:02 | PROVIDERS: ATTEND Physician Assistant | DX: R53.83 Other fatigue (principal) | CPT/HCPCS: 36415; 82784 ==

== ENCOUNTER 2022-09-10 09:18 | Emergency (ER) | payer BC ==
[2022-09-10 09:30] VITALS: BP 144/78; TEMP 98.4
--- NOTE | 2022-09-10 09:41 | ED ---
Extremity Problem HPI - General Source: patient, RN notes reviewed Mode of arrival: ambulatory Limitations: no limitations <Jose Charles - Last Filed: 09/10/22 09:40> <El Crawford - Last Filed: 09/10/22 15:29> - General Chief complaint: Extremity Problem,Nontraumatic Stated complaint: Arm swelling and warm, post surgery 1 week ago Time Seen by Provider: 09/10/22 09:29 - History of Present Illness Initial comments: 62-year-old female presents emergency Department chief complaint left arm pain, swelling. Patient states she had an IV on August 31. Patient states she had pain, swelling redness of her forearm. Patient states does not pass out. Denies chest pain no shortness of breath. Patient is concerned about possible DVT. Patient has no history. (Jose Charles) - Related Data Home Medications Medication Instructions Recorded Confirmed Losartan [Cozaar] 50 mg PO QAM 04/02/16 05/30/20 Multivitamins, Thera [Multivitamin] 1 tab PO DAILY 04/02/16 05/30/20 Venlafaxine HCl [Effexor XR] 225 mg PO QAM 04/02/16 05/30/20 Zolpidem [Ambien] 5 mg PO HS 04/02/16 05/30/20 traMADol HCl [Ultram] 50 mg PO Q6H PRN 04/02/16 05/30/20 ALPRAZolam [Xanax] 0.25 mg PO HS 08/12/19 05/30/20 amLODIPine [Norvasc] 5 mg PO HS 08/12/19 05/30/20 Previous Rx's Medication Instructions Recorded HYDROcodone/APAP 5-325MG [[place] 1 tab PO Q6HR PRN 3 Days #12 tab 05/18/20 5-325] Ondansetron Odt [Zofran Odt] 4 mg PO Q8HR PRN #12 tab 05/18/20 Tamsulosin [Flomax] 0.4 mg PO DAILY #7 cap 05/18/20 Cephalexin [Keflex] 500 mg PO Q8HR #9 cap 05/30/20 Ketorolac [Toradol] 10 mg PO Q6HR PRN #15 tab 05/30/20 Cephalexin [Keflex] 500 mg PO Q6HR 3 Days #12 cap 09/10/22 Allergies Allergy/AdvReac Type Severity Reaction Status Date / Time amlodipine [From [facility]] Allergy Rash/Hives Verified 09/10/22 09:30 Sulfa (Sulfonamide Allergy Itching/yeast Verified 09/10/22 09:30 Antibiotics) infection morphine AdvReac Nausea & Verified 09/10/22 09:30 Vomiting Review of Systems ROS Other: All systems not noted in ROS Statement are negative. <Jose Charles - Last Filed: 09/10/22 09:40> ROS Other: All systems not noted in ROS Statement are negative. <El Crawford - Last Filed: 09/10/22 15:29> ROS Statement: Those systems with pertinent positive or pertinent negative responses have been documented in the HPI. Past Medical History Past Medical History: Cancer, Hyperlipidemia, Hypertension, Osteoarthritis (OA), Sleep Apnea/CPAP/BIPAP Additional Past Medical History / Comment(s): HX OF MIGRAINES,hypoglycemia, colon polyps, uses CPAP, past hx. skin cancer, IBS, kidney stones, brain aneurysm-neuro. monitors-has had for 18 yrs. History of Any Multi-Drug Resistant Organisms: None Reported Past Surgical History: Ear Surgery, Orthopedic Surgery, Tubal Ligation, Uterine Ablation Additional Past Surgical History / Comment(s): HAS HAD 2 SX LEFT EAR, HAS A NON METAL IMPLANT. HAS HAD LEFT BREAST BX X2, HAS HAD 2 SX ON LEFT KNEE, RT CARPAL TUNNEL Past Anesthesia/Blood Transfusion Reactions: Postoperative Nausea & Vomiting (PONV) Past Psychological History: Anxiety, Depression Smoking Status: Former smoker Past Alcohol Use History: None Reported Past Drug Use History: None Reported - Past Family History Son(s) Family Medical History: Blood Disorder, Deep Vein Thrombosis (DVT) Father Family Medical History: Cancer Sister(s) Additional Family Medical History / Comment(s): Factor 5 Leiden <Jose Charles - Last Filed: 09/10/22 09:40> General Exam Limitations: no limitations <Jose Charles - Last Filed: 09/10/22 09:40> General appearance: alert, in no apparent distress Head exam: Present: atraumatic Eye exam: Absent: scleral icterus, conjunctival injection, periorbital swelling Respiratory exam: Present: normal lung sounds bilaterally. Absent: respiratory distress, accessory muscle use Cardiovascular Exam: Present: regular rate Left Elbow exam: Present: full ROM. Absent: tenderness Forearm Wrist exam: Present: full ROM, tenderness, swelling, erythema. Absent: abrasion, laceration, ecchymosis, deformity, crepitus, dislocation, tenderness over anatomical snuff box Hand Wrist exam: Present: full ROM. Absent: tenderness Neuro motor exam: Present: wrist extension intact, thumb opposition intact, thumb IP flexion intact, thumb adduction intact, fingers 2-5 abduction intact Neurosensory exam: Present: radial nerve intact, ulnar nerve intact, median nerve intact Vascular: Present: normal capillary refill, radial pulse. Absent: vascular compromise Neurological exam: Present: alert, oriented X3 Psychiatric exam: Present: normal affect, normal mood Skin exam: Present: warm, dry, normal color. Absent: cyanosis, diaphoretic, petechiae, pallor <El Crawford - Last Filed: 09/10/22 15:29> Course Vital Signs 09/10/22 09/10/22 09:27 12:28 Temperature 98.4 F Pulse Rate 72 82 Respiratory 20 18 Rate Blood Pressure 144/78 O2 Sat by Pulse 96 97 Oximetry Medical Decision Making <El Crawford - Last Filed: 09/10/22 15:29> - Medical Decision Making Patient presents with left forearm swelling after IV insertion to her left hand on . IV was placed during outpatient lumpectomy and lymph node removal for breast cancer. States noticed the swelling on the with some redness going up her arm. No fevers, full range of motion, capillary refill less than 2 seconds. Patient has full range of motion of the hand wrist and forearm. No fevers. Ultrasound negative for DVT. Patient states is immune compromised taking Hizentra for immune deficiency. Redness is consistent with superficial thrombophlebitis however she is concerned for infection. She will be placed on Keflex for possible cellulitis. Directed to follow up with her primary care doctor this week. Patient also agreeable to this plan of care. Case discussed with Dr. Carroll. Was pt. sent in by a medical professional or institution? @No Did you speak to anyone other than the patient for history? @No Did you review nursing and triage notes? @Yes I agree Were old charts reviewed? @No Differential Diagnosis? @Thrombophlebitis, DVT, cellulitis, muscle strain EKG interpreted by me (3pts min.)? @ [none] X-rays interpreted by me (1pt min.)? @ [none] CT interpreted by me (1pt min.)? @ [none] U/S interpreted by me (1pt. min.)? @Yes, no evidence of obstructed blood flow or DVT. Radiologist interpretation no evidence of left forearm DVT. What testing was considered but not performed? (CT, X-rays, U/S, labs)? Why? @No What meds were considered but not given? Why? @None Did you discuss the management of the patient with other professionals? @No Did you reconcile home meds? @No Was smoking cessation discussed for >3mins.? @Nonsmoker Was critical care preformed (if so, how long)? @No Were there social determinants of health that impacted care today? How? (Homelessness, low income, unemployed, alcoholism, drug addiction, transportation, low edu. Level, literacy, decrease access to med. care, long-term, rehab)? @None Was there de-escalation of care discussed even if they declined? (Discuss DNR or withdrawal of care, Hospice)? @No What co-morbidities impacted this encounter? (DM, HTN, Smoking, COPD, CAD, Cancer, CVA, Hep., AIDS, mental health diagnosis, sleep apnea, morbid obesity)? @Immune compromise, hypertension, breast cancer Was patient admitted / discharged? @Discharged Undiagnosed new problem with uncertain prognosis? @ [none] Drug Therapy requiring intensive monitoring for toxicity (Heparin, Nitro, Insulin, Cardizem)? @No Were any procedures done? @No Diagnosis/symptom? @Superficial thrombophlebitis Acute, or Chronic, or Acute on Chronic? @Acute Uncomplicated (without systemic symptoms) or Complicated (systemic symptoms)? @Uncomplicated Side effects of treatment? @ [none] Exacerbation, Progression, or Severe Exacerbation] @ [no] Poses a threat to life or bodily function? @ [no] (El Crawford) Disposition <Jose Charles - Last Filed: 09/10/22 09:40> Is patient prescribed a controlled substance at d/c from ED?: No Time of Disposition: 11:24 <El Crawford - Last Filed: 09/10/22 15:29> Clinical Impression: Thrombophlebitis of arm, left Disposition: HOME SELF-CARE Condition: Good Additional Instructions: Continue Tylenol and Motrin for pain. Follow-up with the primary care doctor this week. Prescriptions: Cephalexin [Keflex] 500 mg PO Q6HR 3 Days #12 cap Referrals: Nonstaff,Physician [Primary Care Provider] - 1-2 days
--- NOTE | 2022-09-10 10:46 | US ---
EXAMINATION TYPE: US venous doppler duplex UE LT DATE OF EXAM: 09/10/2022 COMPARISON: NONE CLINICAL HISTORY: Pain,swelling, recent IV. Pain SIDE PERFORMED: Left Left Arm: Negative for DVT, Grayscale, color doppler, spectral doppler imaging performed of the deep veins of the upper extremities. There is normal flow, compressibility and vascular waveforms. IMPRESSION: No evidence of left lower extremity deep vein thrombosis.
[2022-09-10 12:29] VITALS: PULSE 82; RESP 18
== END 2022-09-10 12:28 | disposition home or self-care (01) ==
LOC: EC 09:18
DX: I80.8 Phlebitis and thrombophlebitis of other sites (principal); I10 Essential (primary) hypertension; M19.90 Unspecified osteoarthritis, unspecified site; G47.30 Sleep apnea, unspecified; F41.9 Anxiety disorder, unspecified; F32.A Depression, unspecified; Z87.891 Personal history of nicotine dependence; Z79.1 Long term (current) use of non-steroidal anti-inflammatories (NSAID); Z88.8 Allergy status to other drugs, medicaments and biological substances; Z88.2 Allergy status to sulfonamides; Z88.5 Allergy status to narcotic agent; Z79.899 Other long term (current) drug therapy
CPT/HCPCS: 99283

== ENCOUNTER → 2022-12-06 | Outpatient (CLI) | payer BC ==
[2022-12-06 15:46] LABS: Immunoglobulin A 60.7 mg/dL (60.0-350.0)
[2022-12-06 15:55] LABS: Immunoglobulin M <25.0 mg/dL (40.0-280.0)
== END | disposition home or self-care (01) ==
LOC: LABWHC1 09:37
PROVIDERS: ATTEND Physician Assistant
DX: R53.83 Other fatigue (principal)
CPT/HCPCS: 36415; 82784

== ENCOUNTER → 2023-05-01 | Outpatient (CLI) | payer BC ==
[2023-05-01 20:01] LABS: Immunoglobulin A 72.9 mg/dL (60.0-350.0)
[2023-05-01 20:13] LABS: Immunoglobulin M <35.0 mg/dL (40.0-280.0)
== END | disposition home or self-care (01) ==
LOC: LABWHC1 12:20
PROVIDERS: ATTEND Physician Assistant
DX: R53.83 Other fatigue (principal)
CPT/HCPCS: 36415; 82784

== ENCOUNTER → 2023-07-18 | Outpatient (CLI) | payer BC, MEDICARE ==
[2023-07-18 14:29] LABS: INR 0.9 (<1.2); Partial Thromboplastin Time 21.4 sec (22.0-30.0); Prothrombin Time 10.2 sec (10.0-12.5)
[2023-07-18 21:41] LABS: ALT 15 U/L (8-44); AST 30 U/L (13-35); Albumin 4.3 g/dL (3.8-4.9); Albumin/Globulin Ratio 1.72 Ratio (1.60-3.17); Alkaline Phosphatase 84 U/L (41-126); BUN/Creat Ratio 24.43 Ratio (12.00-20.00); Blood Urea Nitrogen 17.1 mg/dL (9.0-27.0); Calcium 9.7 mg/dL (8.7-10.3); Carbon Dioxide 24.9 mmol/L (21.6-31.8); Chloride 104 mmol/L (96-109); Globulin 2.5 g/dL (1.6-3.3); Glucose 93 mg/dL (70-110); Potassium 4.7 mmol/L (3.5-5.5); Sodium 143 mmol/L (135-145); Total Bilirubin 0.5 mg/dL (0.3-1.2); Total Protein 6.8 g/dL (6.2-8.2)
[2023-07-18 21:48] LABS: HCT 46.9 % (37.2-46.3); HGB 15.1 g/dL (12.0-15.0); MCH 30.7 pg (27.0-32.0); MCHC 32.2 g/dL (32.0-37.0); MCV 95.3 FL (80.0-97.0); NRBC Per 100 WBC 0 X 10*3/uL (0.00-0.01); Platelet Count 337 X 10*3/uL (140-440); RBC 4.92 X 10*6/uL (4.10-5.20); RDW 12.6 % (11.5-14.5); WBC 4.63 X 10*3/uL (4.50-10.00)
[2023-07-19 04:56] LABS: Appearance,Urine Clear (Clear); Bilirubin,Urine Negative (Negative); Blood,Urine Negative (Negative); Color,Urine Yellow (Yellow); Ketones,Urine Negative (Negative); Nitrite,Urine Negative (Negative); Specific Gravity,Urine 1.017 (1.001-1.030)
== END | disposition home or self-care (01) ==
LOC: LABPAT 11:02
PROVIDERS: ATTEND Orthopaedic Surgery
DX: Z01.812 Encounter for preprocedural laboratory examination (principal); M16.12 Unilateral primary osteoarthritis, left hip
CPT/HCPCS: 80053; 81003; 85027; 85610; 85730; 86850; 86900; 86901; 87070

== ENCOUNTER → 2023-07-24 | Outpatient (CLI) | payer MEDICARE ==
--- NOTE | 2023-07-24 13:22 | XR ---
EXAMINATION TYPE: XR KUB DATE OF EXAM: 07/24/2023 COMPARISON: 05/20/2020 INDICATION: Renal calculus lower abdominal pain TECHNIQUE: Single view abdomen FINDINGS: There is a normal bowel gas pattern. Psoas margins are normal. No organomegaly is present. No renal or ureteral stones are identified. Phleboliths appear to be within the pelvis. Surgical clip s are within the pelvis. IMPRESSION: 1. Unremarkable Abdomen
== END | disposition home or self-care (01) ==
LOC: RADXRMAIN 12:26
PROVIDERS: ATTEND Urology
DX: N20.0 Calculus of kidney (principal)
CPT/HCPCS: 74018

== ENCOUNTER 2023-07-29 05:35 | Day surgery (SDC) | payer MEDICARE, BC ==
[~2023-07-29 05:35] MED LIST changes: +ACETAMINOPHEN TAB 500 MG TAB PO PRN; +GABAPENTIN 300 MG CAP PO PRN; -LACTATED RINGERS 1,000 ML IV ONE; -LACTATED RINGERS 1,000 ML IV SCH; -LIDOCAINE 1% 20 ML VIAL (10MG/ML) FOR IV START INTRADERMA PRN; -LIDOCAINE 1% INJ 10MG/ML (20 ML MDV) ONE; +MELOXICAM 7.5 MG TAB PO PRN; -PROPOFOL 10 MG/ML 20 ML VIAL IV ONE; +TRANEXAMIC 1,000 MG/100ML-NACL 1,000 MG in SALINE 1 100ML.BAG IVPB PRN
[2023-07-29] MEDS ORDERED: DEXAMETHASONE SOD PHOSPHATE 4 MG/ML 1 ML VIAL IV ONE (05:40)
[2023-07-29] MEDS ORDERED: ONDANSETRON 4 MG/2 ML VIAL IVP ONE (05:40)
[2023-07-29] MEDS: LACTATED RINGERS 1,000 ML IV SCH (06:02)
[2023-07-29 06:39] LABS: Glucose,Whole Blood 101 mg/dL (70-110)
[2023-07-29] MEDS ORDERED: MIDAZOLAM 2 MG/2 ML VIAL IVP ONE (06:45)
[2023-07-29] MEDS ORDERED: fentaNYL (PF) 50 MCG/ML 2 ML AMP IV PRN (07:00)
[2023-07-29] MEDS ORDERED: MIDAZOLAM 2 MG/2 ML VIAL IV PRN (07:00)
[2023-07-29] MEDS ORDERED: ceFAZolin 1,000 MG in SODIUM CHLORIDE 0.9% 1,000 ML IRRIGATION ONE (07:04)
--- NOTE | 2023-07-29 07:29 | P.ANPRN ---
Procedure Note - Anesthesia - Nerve Block Performed Left Benjamin Single Time Out Performed: Yes Date of Procedure: 07/29/23 Procedure Start Time: 06:44 Procedure Stop Time: 06:49 Location of Patient: PreOp Indication: Acute Post-Operative Pain, Requested by Surgeon Sedation Type: Sedate with meaningful contact maintained Preparation: Sterile Prep Position: Supine Catheter: None Needle Types: Pajunk Needle Gauge: 21 Ultrasound used to visualize needle placement: Yes Ultrasound used to observe medication spread: Yes Injectate: 0.5% Ropivacaine (see comment for volume) (Ropiv 10 ml+NS 10ml) Blood Aspirated: No Pain Paresthesia on Injection Noted: No Resistance on Injection: Normal Image Stored and Saved: Yes Events: Uneventful and Well Tolerated
[2023-07-29] MEDS ORDERED: ROPIVACAINE 5 MG/ML 30 ML VIAL MISCELLANE ONE ×2 (07:33→08:24)
[2023-07-29] MEDS ORDERED: LACTATED RINGERS 1,000 ML IV ONE (08:11)
--- NOTE | 2023-07-29 08:29 | P.OP ---
Date of Procedure: 07/29/23 Preoperative Diagnosis: Severe osteoarthritis left hip Postoperative Diagnosis: Severe osteoarthritis left hip Procedure(s) Performed: Left total hip arthroplasty with a direct anterior approach Implants: [employer] Polarstem standard size 3 with a collar [employer] R3, 3 hole hemispherical acetabular shell, 50 mm [employer] Reflection 6.5 mm cancellus screw, 20 mm 2 [employer] R3, XLPE 20 acetabular liner [employer]hew Oxinium femoral head 36 m, +0 All components were press-fit. The articulation is Oxinium on polyethylene. Anesthesia: spinal Surgeon: Jose Balderas Corrugated Sheet Material Sheeter #1: Brittany Granda Estimated Blood Loss (ml): 500 Pathology: none sent Condition: stable Disposition: PACU Indications for Procedure: After failure of conservative treatment we discussed the surgical and nonsurgic al treatment options at length. Patient wishes to proceed with a total hip arthroplasty with a direct anterior approach. Complications specific to this procedure were discussed at length, including but not limited to infection, leg length discrepancy, dislocation, nerve injury, and fracture. Covid-19 was also discussed at length with the patient, and they are aware of the current policies and procedures. The patient was given the option of delaying surgery, but they elect to proceed knowing these risks. Patient is aware of all these complications and informed consent was obtained Operative Findings: The operative findings are consistent with severe osteoarthritis of the left hip Description of Procedure: The patient was seen and evaluated in the preoperative area and the consent was reviewed. The operative site was marked with a skin marker. The patient verified the procedure and operative site. A ELIEL block was placed by anesthesia in the preoperative area. The patient was then brought to the operating room and given preoperative antibiotics intravenously. 1 g of Tranexamic acid was also given intravenously. A spinal anesthetic was administered by the anesthesia department. The patient was then placed on the Nicolaus table with the bony prominences well-padded. The hip area was then prepped with a ChloraPrep solution and draped in the usual sterile fashion. A universal timeout was then performed, which confirmed the patient's name, surgical site, ALLERGIES, and procedure being performed on the consent. Next the incision site was located at 1 cm distal and 4 cm lateral to the anterior superior iliac spine. The skin and subcutaneous tissues were sharply incised. Incision was carefully dissected down to the fascia overlying the tensor fascia nilda muscle. This fascia was then incised in line with the muscle fibers. Care was taken to stay laterally in order to avoid injuring the lateral femoral cut aneous nerve. Next, using blunt finger dissection, the tensor fascia nilda muscle was dissected off its investing fascia. The muscle was then carefully retracted laterally with a cobra retractor over the lateral neck of the femur. Next, the circumflex vessels were identified and cauterized using the Aquamantis device. The anterior hip capsule was then exposed. The capsule was then opened and an inverted T fashion. The retractors were then placed intracapsularly. The retractors were maintained intracapsular throughout the procedure. The proximal femur was then visualized. Fluoroscopic x-rays were then taken in order to evaluate the preoperative leg lengths. A small amount of traction was placed on the leg. The femoral neck was then osteotomized at the appropriate level above the lesser trochanter. A small wedge of bone was then removed from the remaining femoral head. Next, using a corkscrew the femoral head was removed from the acetabulum. On gross visual inspection, the femoral head had complete loss of articular cartilage and multiple periarticular osteophytes. The femoral head was then measured. Attention was then turned to the acetabulum. The acetabulum was exposed and any remaining labrum was excised. Sequential reaming of the acetabulum was performed using fluoroscopic guidance until there was a good bed of bleeding cancellus bone. When the appropriate size was reached, a trial was then placed. The position and fit of the trial was checked with fluoroscopy. The trial was then removed. Then, using fluoroscopic guidance, the final implant was impacted at 20 of anteversion and 40 of abduction, and fully seated in the acetabulum. 2 screws were then placed in the acetabulum. Again fluoroscopy was used to check position of the screws. Next, the liner was then impacted, with a 20 elevated liner located in the anterior superior quadrant. Component locking was confirmed. Attention was then directed to the femur. With the aid of the Nicolaus table, the femur was externally rotated to approximately 130, extended, and adducted under the opposite leg. A side hook was then placed under the proximal femur, and the side hook elevator was used to elevate the proximal femur while releasing the capsule. Retractors were then placed. A capsular release was performed, as well as a release of the conjoined tendon, which afforded excellent visual ization of the proximal femur. Next, a box osteotome was used to lateralize the proximal femur. A broke handler was then used to locate the femoral canal. Sequential broaching was then performed with appropriate size which afforded excellent fixation in the proximal femur. A trial was then placed with appropriate head and neck, and the hip was gently reduced with the aid of the Nicolaus table. Fluoroscopy was then used to check position of the components, as well as to evaluate the leg lengths and offset. The leg lengths and offset were measured as closely as possible to ensure stability of the hip. The hip was then gently dislocated and the trials were then removed. Final implants were then impacted and the hip was again reduced. Final fluoroscopic x-rays confirmed that the components were in anatomic position. The leg lengths and offset were measured and were found to coincide with the trial measurements. The hip was also taken through range of motion, and found to be stable. The hip was then copiously irrigated with antibiotic solution with pulsatile lavage. The hip was then irrigated with Irrisept solution. The soft tissues were then injected with a ropivacaine solution. A second dose of 1 g of Tranexamic acid was also given intravenously. The fascia was then closed with 2-0 strata fix suture. The subcutaneous tissue was closed with 3-0 Vicryl. The subcuticular tissue was closed with 3-0 strata fix suture. The skin was then closed with Exofin skin glue. After the glue and dried, and Optifoam silver impregnated dressing was applied. The patient was then transferred to the recovery room in stable condition. The promotions assistant BATSHEVA Campos was required due to the complexity of surgery, and the need for skilled manager surgical for positioning, draping, exposure, retraction, and closure of the wound.
[2023-07-29] MEDS ORDERED: MAGNESIUM HYDROXIDE 2,400 MG/30 ML CUP PO PRN (08:55)
[2023-07-29] MEDS ORDERED: HYDROmorphone 0.5 MG/0.5 ML SYRINGE IVP PRN ×2 (08:55)
[2023-07-29] MEDS ORDERED: ONDANSETRON 4 MG/2 ML VIAL IVP PRN (08:55)
[2023-07-29] MEDS ORDERED: NALOXONE 0.4 MG/ML 1 ML VIAL IV PRN (08:55)
--- NOTE | 2023-07-29 08:55 | FL ---
Intraoperative/procedural fluoroscopic services were provided. Total fluoroscopy time is 17 seconds w ith a total of 3 submitted images to PACS. Please see the operative/procedural note for further detai ls. DAP: 402.66 Gycm2
[2023-07-29] MEDS ORDERED: HYDROcodone/APAP 7.5-325MG 1 EACH TAB PO PRN (08:57)
--- NOTE | 2023-07-29 09:25 | XR ---
EXAMINATION TYPE: XR Hip Limited LT DATE OF EXAM: 07/29/2023 CLINICAL HISTORY: Postoperative evaluation TECHNIQUE: Single portable view of the left hip was submitted. FINDINGS: Noted are changes of total hip arthroplasty with femoral and acetabular components appearin g well seated. Alignment is anatomic. Postsurgical soft tissue changes are evident. IMPRESSION: Satisfactory postoperative alignment
[2023-07-29] MEDS: HYDROmorphone 0.5 MG/0.5 ML SYRINGE IVP PRN ×4 (09:44→20:13)
[2023-07-29] MEDS: SODIUM CHLORIDE 0.9% 1,000 ML IV SCH (15:15)
[2023-07-29] MEDS ORDERED: ALPRAZolam 0.25 MG TAB PO PRN (16:07)
[2023-07-29] MEDS ORDERED: ZOLPIDEM 5 MG TAB PO PRN (16:07)
--- NOTE | 2023-07-29 17:15 | P.CONS ---
History of Present Illness - Reason for Consult Consult date: 07/29/23 - History of Present Illness 63-year-old female with PMH of HTN, insomnia, anxiety presents to [facility] for elective surgery. He underwent direct anterior left total hip arthroplasty with Dr. Balderas. She was seen and examined post operatively. Able to urinate. Pain 9/10 in severity, worsened with movement. No bowel movement but passing gas. She has no complaints. Pertinent positives and negatives as discussed in HPI, a complete review of systems was performed and all other systems are negative. General: non toxic, no distress, appears at stated age Derm: warm, dry Head: atraumatic, normocephalic, symmetric Eyes: EOMI, no lid lag, anicteric sclera Cardiovascular: S1S2 reg, no murmur Lungs: CTA bilateral, no rhonchi, no rales , no accessory muscle use Ext: no gross muscle atrophy, no edema, no contractures Neuro: no focal neuro deficits Psych: Alert, oriented, appropriate affect HTN Insomnia Anxiety Based on my assessment of this patient, this patient meets a moderate complexity level of care. HTN: Labetalol 100 mg PO BID. Losartan 100 mg PO QD. Insomnia: Ambien 5 mg PO QHS PRN. Anxiety: Xanax 0.25 mg PO QHS PRN. Effexor 150 mg PO QAM. CODE STATUS: FULL CODE. DVT Prophylaxis: ASA GI Prophylaxis: Designated medical POA if patient is not able to make medical decisions for themselves: I have reviewed the following resourcing consultant notes: Orthopedic surgery ntoe. I have reviewed the results of the following tests: POC glucose. I have ordered the following tests: Agree with CBC. I have discussed the care of this patient with the following independent historian: Discussed with RN. I have independently interpreted the following test below: I have discussed the management of this patient with the following physician: Past Medical History Past Medical History: Cancer, Hyperlipidemia, Hypertension, Osteoarthritis (OA), Sleep Apnea/CPAP/BIPAP Additional Past Medical History / Comment(s): HX OF MIGRAINES,hypoglycemia, colon polyps, uses CPAP, past hx. skin cancer, IBS, kidney stones, brain aneurysm-neuro. monitors-has had for 18 yrs. History of Any Multi-Drug Resistant Organisms: None Reported Past Surgical History: Ear Surgery, Orthopedic Surgery, Tubal Ligation, Uterine Ablation Additional Past Surgical History / Comment(s): HAS HAD 2 SX LEFT EAR, HAS A NON METAL IMPLANT. HAS HAD LEFT BREAST BX X2, HAS HAD 2 SX ON LEFT KNEE, RT CARPAL TUNNEL Past Anesthesia/Blood Transfusion Reactions: Postoperative Nausea & Vomiting (PONV) Past Psychological History: Anxiety, Depression Smoking Status: Former smoker Past Alcohol Use History: None Reported Additional Past Alcohol Use History / Comment(s): QUIT SMOKING 1997, STARTED SMOKING AGE 16(1975) SMOKED 1PPD Past Drug Use History: None Reported - Past Family History Son(s) Family Medical History: Blood Disorder, Deep Vein Thrombosis (DVT) Father Family Medical History: Cancer Sister(s) Additional Family Medical History / Comment(s): Factor 5 Leiden Medications and Allergies Home Medications Medication Instructions Recorded Confirmed Type Venlafaxine HCl [Effexor XR] 150 mg PO QAM 04/02/16 07/29/23 History Zolpidem [Ambien] 5 mg PO HS PRN 04/02/16 07/29/23 History traMADol HCl [Ultram] 50 mg PO Q6H PRN 04/02/16 07/29/23 History ALPRAZolam [Xanax] 0.25 mg PO HS PRN 08/12/19 07/29/23 History Fluticasone Nasal [place] [Flonase 2 spray EA NOSTRIL DAILY 07/23/23 07/29/23 History Nasal [place]] Labetalol [Trandate] 100 mg PO BID 07/23/23 07/29/23 History Letrozole [Femara] 2.5 mg PO DAILY 07/23/23 07/29/23 History Olmesartan Medoxomil [Benicar] 20 mg PO DAILY 07/23/23 07/29/23 History Aspirin 325 mg PO BID #60 tab 07/29/23 Rx HYDROcodone/APAP 7.5-325MG [[place] 1 - 2 tab PO Q6H PRN #32 tab 07/29/23 Rx 7.5-325] Sennosides [Senokot] 2 tab PO DAILY PRN #60 tablet 07/29/23 Rx Allergies Allergy/AdvReac Type Severity Reaction Status Date / Time amlodipine [From [facility]] Allergy Rash/Hives Verified 07/23/23 15:01 Sulfa (Sulfonamide Allergy Itching/yeast Verified 07/23/23 15:01 Antibiotics) infection morphine AdvReac Nausea & Verified 07/23/23 15:01 Vomiting Physical Exam Vitals: Vital Signs Temp Pulse Pulse Resp BP BP BP 07/29/23 13:50 98.4 F 74 18 100/62 07/29/23 12:27 69 141/74 07/29/23 12:13 72 120/56 07/29/23 11:56 65 122/80 07/29/23 11:41 65 119/79 07/29/23 11:26 63 126/76 07/29/23 11:11 67 125/81 07/29/23 10:57 65 122/68 07/29/23 10:42 65 117/71 07/29/23 10:27 97.7 F 65 18 114/79 07/29/23 10:00 58 L 16 109/68 07/29/23 09:45 59 L 16 122/64 07/29/23 09:30 58 L 16 105/56 07/29/23 09:15 57 L 16 103/56 07/29/23 09:00 58 L 14 98/53 07/29/23 08:51 98.2 F 60 12 99/46 07/29/23 06:57 55 L 18 131/62 07/29/23 06:14 97.2 F L 77 18 134/63 Pulse Ox 07/29/23 13:50 95 07/29/23 12:27 97 07/29/23 12:13 95 07/29/23 11:56 95 07/29/23 11:41 97 07/29/23 11:26 97 07/29/23 11:11 98 07/29/23 10:57 98 07/29/23 10:42 98 07/29/23 10:27 99 07/29/23 10:00 98 07/29/23 09:45 98 07/29/23 09:30 100 07/29/23 09:15 99 07/29/23 09:00 96 07/29/23 08:51 95 07/29/23 06:57 97 07/29/23 06:14 95 Intake and Output 07/29/23 07/29/23 07/29/23 06:59 14:59 22:59 Intake Total 300 1251 Output Total 500 Balance 300 751 Intake: IV 300 1251 Output: Estimated Blood Loss 500 Other: Weight 102 kg 102 kg
[2023-07-29] MEDS: HYDROcodone/APAP 7.5-325MG 1 EACH TAB PO PRN (17:47)
[2023-07-29] MEDS: ASPIRIN 325 MG TAB PO SCH (20:12)
[2023-07-29] MEDS ORDERED: LABETALOL 100 MG TAB PO SCH (21:00)
[2023-07-29] MEDS ORDERED: SENNOSIDES-DOCUSATE SODIUM 1 EACH TAB PO SCH (21:00)
[2023-07-30] MEDS: SODIUM CHLORIDE 0.9% 1,000 ML IV SCH ×2 (00:35→03:47)
[2023-07-30] MEDS: HYDROmorphone 0.5 MG/0.5 ML SYRINGE IVP PRN (01:13)
[2023-07-30] MEDS: LACTATED RINGERS 1,000 ML IV SCH (04:40)
[2023-07-30] MEDS: HYDROcodone/APAP 7.5-325MG 1 EACH TAB PO PRN (06:54)
[2023-07-30 07:57] VITALS: BP 108/53; PULSE 97; RESP 17; TEMP 98.4
[2023-07-30] MEDS: ASPIRIN 325 MG TAB PO SCH (08:26)
--- NOTE | 2023-07-30 08:47 | P.DS ---
Providers Expected date of discharge: 07/30/23 Attending physician: Jose Balderas Consults: 07/29/23 10:40 Consult Physician Routine Consulting Provider: Rafaela Porter Consult Reason/Comments: Medical management Do you want consulting provider notified?: Yes Primary care physician: Paulina Martinezsa - Discharge Diagnosis(es) (1) Osteoarthritis of left hip Current Visit: Yes Status: Acute (2) S/P total hip arthroplasty Current Visit: Yes Status: Acute Hospital Course: This is a 63-year-old female with known history of degenerative arthritis of the left hip. The patient presented for evaluation as an outpatient. After discussion and consideration patient elects to proceed with total hip arthroplasty. The patient is seen preoperatively by Dr. Balderas and medically cleared for surgery by their primary care physician. Patient is admitted to [facility] on 07/29/2023 for total hip arthroplasty. The procedure is performed without complication or sequelae. The patient is doing well postoperatively. Labs and vital signs are stable on day of discharge. On day of discharge patient's hip incision is healing well. There is minimal erythema. There is no drainage noted at this time. There is minimal soft tissue swelling to the hip and thigh. Patient has full foot and ankle motion without difficulty or pain. Calf is soft and nontender to palpation. Neurovascular status to the left lower extremity is intact. Patient is discharged home in good condition. Please see [facility] rec for accurate list of home medications. Plan - Discharge Summary Discharge Rx Participant: Yes New Discharge Prescriptions: New Aspirin 325 mg PO BID #60 tab Sennosides [Senokot] 2 tab PO DAILY PRN #60 tablet PRN Reason: Constipation HYDROcodone/APAP 7.5-325MG [[place] 7.5-325] 1 - 2 tab PO Q6H PRN #32 tab PRN Reason: Pain No Action traMADol HCl [Ultram] 50 mg PO Q6H PRN PRN Reason: Pain Zolpidem [Ambien] 5 mg PO HS PRN PRN Reason: Insomnia Venlafaxine HCl [Effexor XR] 150 mg PO QAM ALPRAZolam [Xanax] 0.25 mg PO HS PRN PRN Reason: Anxiety Letrozole [Femara] 2.5 mg PO DAILY Olmesartan Medoxomil [Benicar] 20 mg PO DAILY Labetalol [Trandate] 100 mg PO BID Fluticasone Nasal [place] [Flonase Nasal [place]] 2 spray EA NOSTRIL DAILY Discharge Medication List Venlafaxine HCl [Effexor XR] 150 mg PO QAM 04/02/16 [History] Zolpidem [Ambien] 5 mg PO HS PRN 04/02/16 [History] traMADol HCl [Ultram] 50 mg PO Q6H PRN 04/02/16 [History] ALPRAZolam [Xanax] 0.25 mg PO HS PRN 08/12/19 [History] Fluticasone Nasal [place] [Flonase Nasal [place]] 2 spray EA NOSTRIL DAILY 07/23/23 [History] Labetalol [Trandate] 100 mg PO BID 07/23/23 [History] Letrozole [Femara] 2.5 mg PO DAILY 07/23/23 [History] Olmesartan Medoxomil [Benicar] 20 mg PO DAILY 07/23/23 [History] Aspirin 325 mg PO BID #60 tab 07/29/23 [Rx] HYDROcodone/APAP 7.5-325MG [[place] 7.5-325] 1 - 2 tab PO Q6H PRN #32 tab 07/29/23 [Rx] Sennosides [Senokot] 2 tab PO DAILY PRN #60 tablet 07/29/23 [Rx] Follow up Appointment(s)/Referral(s): Jose Balderas DO [Doctor of Osteopathic Medicine] - 2 Weeks Activity/Diet/Wound Care/Special Instructions: Weightbearing as tolerated with walker. Leave dressing intact. Dressing may be removed by home care nurse or by patient in 7 days. Then change dressing twice daily until follow up. May shower with initial dressing intact and after removal. If dressing become saturated, please remove. Please take aspirin 325mg twice daily for 30 days to prevent blood clots. Recommend use of compression stockings daily until follow up to help prevent swelling and blood clots. May remove at night before sleeping. Please follow-up with [facility] in 2 weeks and call with any questions or concerns, . Discharge Disposition: HOME WITH HOME HEALTH SERVICES
[2023-07-30] MEDS ORDERED: VENLAFAXINE HCL ER 150 MG CAP PO SCH (09:00)
[2023-07-30] MEDS ORDERED: LABETALOL 100 MG TAB PO SCH (09:00)
[2023-07-30] MEDS ORDERED: LOSARTAN 50 MG TAB PO SCH (09:00)
[2023-07-30 09:04] LABS: HCT 30.6 % (37.2-46.3); HGB 10.1 g/dL (12.0-15.0); MCH 30.4 pg (27.0-32.0); MCV 92.2 FL (80.0-97.0); Mean Platelet Volume 9.9 FL (9.5-12.2); NRBC Per 100 WBC 0 X 10*3/uL (0.00-0.01); Platelet Count 200 X 10*3/uL (140-440); RBC 3.32 X 10*6/uL (4.10-5.20); WBC 7.78 X 10*3/uL (4.50-10.00)
[2023-07-30 09:05] LABS: Basophils # (A) 0.02 X 10*3/uL (0.00-0.10); Basophils % (A) 0.3 %; Eosinophils # (A) 0.02 X 10*3/uL (0.04-0.35); Eosinophils % (A) 0.3 %; Lymphocytes # (A) 1.42 X 10*3/uL (0.90-5.00); Lymphocytes % (A) 18.3 %; Monocytes # (A) 0.92 X 10*3/uL (0.20-1.00); Monocytes % (A) 11.8 %; Neutrophils # (A) 5.36 X 10*3/uL (1.80-7.70); Neutrophils % (A) 68.8 %
--- NOTE | 2023-07-30 10:38 | P.PN ---
Subjective Progress Note Date: 07/30/23 Hospital course: Patient is a very pleasant 63-year-old female with a past medical history of hypertension, hyperlipidemia, obstructive sleep apnea, insomnia, anxiety and depression, and osteoarthritis. Patient is currently admitted under orthopedic surgery team status post Left total hip arthroplasty. Surgical procedure was completed on 07/29/[address] Sinha. We have been consulted for medical management throughout patient's hospitalization. Physical exam: Patient seen and fully evaluated at bedside this morning. She was resting comfortably and denied having any complaints. Patient very eager for discharge. Patient's family member at bedside. Vital signs reviewed and stable. General: Nontoxic, no distress and appears stated age. Derm: Skin warm and dry, normal coloration for ethnicity. Head: Atraumatic, normocephalic and symmetric. Eyes: EOMs intact, no lid lag, and anicteric sclera Mouth: no lip lesions, mucus membranes moist Cardiovascular: regular rate and rhythm with normal S1S2, no murmur, positive posterior tibial pulses bilaterally, and cap refill < 2 seconds. Lungs: Respirations even, regular, and unlabored on room air. Lungs CTA bilate rally, no rhonchi, no rales, no wheezing, and no accessory muscle usage. Abdominal: soft, nontender to palpation, no guarding, no appreciable organomegaly Ext: ROM intact. No gross muscle atrophy, no edema, no contractures Neuro: Speech clear, face symmetrical and CN II-XII grossly intact with no noted focal neuro deficits Psych: Alert and oriented to person, place, time, and situation. Appropriate and pleasant affect. Assessment and Plan of Care: Acute postoperative blood loss anemia Morning labs reviewed. CBC showing patient with acute postoperative blood loss anemia. Hemoglobin 10.1 with preoperative hemoglobin of 15.1. No active bleeding noted. This is a stable and expected finding. No need for transfusion or any further interventions at this time. Hypertension Vital signs reviewed. Blood pressure 108/53, heart rate 97, respiratory rate 17, temp 98.4F, and SpO2 of 92% on room air. Hypertension controlled with current medication regimen. Patient to continue daily medication regimen with Olmesartan 20 mg daily and labetalol 100 mg twice daily. Obstructive sleep apnea -Patient to continue with home CPAP nightly and while napping. Anxiety and depression -Patient to continue Effexor 150 mg each morning and Xanax 0.25 mg as needed for anxiety. Status post left total hip arthroplasty -Patient is postoperative day 1 and appears to be doing well. -Management per primary admitting orthopedic surgery team including DVT prophylaxis, pain management, wound/dressing care, weightbearing, and PT/OT. From a medical perspective, patient is medically optimized for discharge with no further recommendations once cleared by primary admitting orthopedic surgery team. Thank you for allowing us to participate in the care of this pleasant patient. Do not hesitate to contact us with questions. Someone can be reached from the [facility] hospitalist group all hours of the day at [phone] or via [employer]. Patient was seen independently by Nurse Pracitioner. This document was prepared using [employer] dictation software. Please allow for errors in program administrator, while rare they do occur. Objective - Vital Signs Vital signs: Vital Signs Temp 98.4 F 07/30/23 07:55 Pulse 97 07/30/23 07:55 Resp 17 07/30/23 07:55 BP 108/53 07/30/23 07:55 Pulse Ox 92 L 07/30/23 07:55 FiO2 Intake & Output 07/29/23 07/30/23 07/30/23 18:59 06:59 18:59 Intake Total 1651 Output Total 500 Balance 1151 Weight 102 kg Intake: IV 1251 Oral 400 Output: Estimated Blood Loss 500 Other: # Voids 3 2 - Labs CBC & Chem 7: 07/30/23 05:29 Labs: Abnormal Lab Results - Last 24 Hours (Table) 07/30/23 Range/Units 05:29 RBC 3.32 L (4.10-5.20) X 10*6/uL Hgb 10.1 L (12.0-15.0) g/dL Hct 30.6 L (37.2-46.3) % Eosinophils # 0.02 L (0.04-0.35) X 10*3/uL
== END 2023-07-30 11:31 | disposition home health service (06) ==
LOC: OR 05:35 → 4SSUR 08:51 → OR 07-30 11:31
PROVIDERS: ATTEND Orthopaedic Surgery
DX: M16.12 Unilateral primary osteoarthritis, left hip (principal); G89.18 Other acute postprocedural pain; I10 Essential (primary) hypertension; F41.9 Anxiety disorder, unspecified; G47.00 Insomnia, unspecified; M19.90 Unspecified osteoarthritis, unspecified site; G47.30 Sleep apnea, unspecified; Z85.828 Personal history of other malignant neoplasm of skin; Z87.19 Personal history of other diseases of the digestive system; Z98.51 Tubal ligation status; Z87.891 Personal history of nicotine dependence; Z79.899 Other long term (current) drug therapy; Z79.82 Long term (current) use of aspirin; Z79.811 Long term (current) use of aromatase inhibitors
CPT/HCPCS: 97161; 97535; 97166; 64447; 85025; 73501; 27130; C1776; J2250; J1100; J0690 ×3; J2405 ×2; J2795; J1170 ×2

== ENCOUNTER → 2023-08-09 | Outpatient (CLI) | payer MEDICARE, BC ==
[2023-08-10 02:50] LABS: Immunoglobulin A <65.0 mg/dL (60.0-350.0)
[2023-08-10 03:05] LABS: Immunoglobulin M <35.0 mg/dL (40.0-280.0)
== END | disposition home or self-care (01) ==
LOC: LABWHC1 15:22
PROVIDERS: ATTEND Internal Medicine Addiction Medicine
DX: Z00.00 Encounter for general adult medical examination without abnormal findings (principal); D80.1 Nonfamilial hypogammaglobulinemia
CPT/HCPCS: 36415; 82784

== ENCOUNTER → 2023-10-09 | Outpatient (CLI) | payer MEDICARE, BC ==
--- NOTE | 2023-10-10 12:05 | US ---
EXAMINATION TYPE: US kidneys/renal and bladder DATE OF EXAM: 10/09/2023 COMPARISON: 07/25/2020 CLINICAL INDICATION: Female, 63 years old with history of N39.9 DISORDER OF URINARY SYSTEM; Patient s tates she feels like she has a UTI feeling. Hx renal stones EXAM MEASUREMENTS: Right Kidney: 9.6 x 4.8 x 5.1 cm Left Kidney: 11.1 x 4.8 x 5.7 cm Right Kidney: Mild pelviectasis or extrarenal pelvis. No hydronephrosis. Lower pole limited due to cali wel gas Left Kidney: lower pole cortical cyst measuring 1.1 cm. No hydronephrosis. Bladder: distended, anechoic Bilateral Jets seen IMPRESSION: No hydronephrosis. Small 1.1 cm cortical cyst lower pole left kidney.
== END | disposition home or self-care (01) ==
LOC: RADUSWWP 15:51
PROVIDERS: ATTEND Urology
DX: N28.1 Cyst of kidney, acquired (principal); N39.0 Urinary tract infection, site not specified; Z87.442 Personal history of urinary calculi
CPT/HCPCS: 76770

== ENCOUNTER 2024-03-12 18:35 | Emergency (ER) | payer MEDICARE, BC ==
[2024-03-12 18:44] VITALS: RESP 18; TEMP 97.9
--- NOTE | 2024-03-12 19:33 | ED ---
Skin/Abscess/FB HPI - General Chief complaint: Skin/Abscess/Foreign Body Stated complaint: L hip post op abcess Time Seen by Provider: 03/12/24 19:31 Source: patient, RN notes reviewed Mode of arrival: ambulatory Limitations: no limitations - History of Present Illness Initial comments: 63-year-old female presented to the ER with a chief complaint of left hip pain. Patient states she underwent a left hip arthroplasty in July [address] Dr. Balderas. She states postsurgery she had an infection and was treated with antibiotics she is unsure of exactly which antibiotic. She noticed yesterday some surrounding redness to the incision. She does report mild clear drainage today and an increase in pain. Denies any fevers, chills, night sweats. No hx of MRSA. No other complaints. - Related Data Home Medications Medication Instructions Recorded Confirmed Labetalol [Trandate] 100 mg PO BID 07/23/23 03/12/24 Letrozole [Femara] 2.5 mg PO DAILY 07/23/23 03/12/24 Olmesartan Medoxomil [Benicar] 20 mg PO DAILY 07/23/23 03/12/24 Calcium Carbonate [Calcium] 600 mg PO BID 03/12/24 03/12/24 Cholecalciferol [Vitamin D3 (25 100 mcg PO BID 03/12/24 03/12/24 Mcg = 1000 Iu)] Venlafaxine HCl [Effexor XR] 150 mg PO DAILY 03/12/24 03/12/24 Zolpidem [Ambien] 10 mg PO HS PRN 03/12/24 03/12/24 Previous Rx's Medication Instructions Recorded Cephalexin [Keflex] 500 mg PO Q6HR 7 Days #28 cap 03/12/24 Allergies Allergy/AdvReac Type Severity Reaction Status Date / Time amlodipine [From Norvasc] Allergy Anaphylaxis Verified 03/12/24 19:35 Sulfa (Sulfonamide Allergy Itching/yeast Verified 03/12/24 19:35 Antibiotics) infection sulfamethoxazole Allergy Itching/yeast Verified 03/12/24 19:35 [From Bactrim] infection trimethoprim [From Bactrim] Allergy Itching/yeast Verified 03/12/24 19:35 infection morphine AdvReac Nausea & Verified 03/12/24 19:35 Vomiting Review of Systems ROS Statement: Those systems with pertinent positive or pertinent negative responses have been documented in the HPI. ROS Other: All systems not noted in ROS Statement are negative. Past Medical History Past Medical History: Cancer, Hyperlipidemia, Hypertension, Osteoarthritis (OA), Sleep Apnea/CPAP/BIPAP Additional Past Medical History / Comment(s): HX OF MIGRAINES,hypoglycemia, colon polyps, uses CPAP, past hx. skin cancer, IBS, kidney stones, brain aneurysm-neuro. monitors-has had for 18 yrs. History of Any Multi-Drug Resistant Organisms: None Reported Past Surgical History: Ear Surgery, Orthopedic Surgery, Tubal Ligation, Uterine Ablation Additional Past Surgical History / Comment(s): HAS HAD 2 SX LEFT EAR, HAS A NON METAL IMPLANT. HAS HAD LEFT BREAST BX X2, RIGHT BREAST, HAS HAD 2 SX ON LEFT KNEE, RT CARPAL TUNNEL, LEFT HIP Past Anesthesia/Blood Transfusion Reactions: Postoperative Nausea & Vomiting (PONV) Past Psychological History: Anxiety, Depression Smoking Status: Former smoker Past Alcohol Use History: None Reported Past Drug Use History: None Reported - Past Family History Son(s) Family Medical History: Blood Disorder, Deep Vein Thrombosis (DVT) Father Family Medical History: Cancer Sister(s) Additional Family Medical History / Comment(s): Factor 5 Leiden General Exam Limitations: no limitations General appearance: alert, in no apparent distress Respiratory exam: Present: normal lung sounds bilaterally. Absent: respiratory distress, wheezes, rales, rhonchi, stridor Cardiovascular Exam: Present: regular rate, normal rhythm, normal heart sounds. Absent: systolic murmur, diastolic murmur, rubs, gallop, clicks Extremities exam: Present: normal inspection, full ROM, normal capillary refill. Absent: tenderness, pedal edema, joint swelling, calf tenderness Skin exam: Present: warm, dry, intact, other (Healed surgical incision over left lateral hip. There is mild erythema to distal end. No purulent drainage or fluctuance present. Minimal serosanguineous drainge. 2+ PT right pulse. sensation intact) Course Vital Signs 03/12/24 03/12/24 18:39 20:13 Temperature 97.9 F Pulse Rate 88 73 Respiratory 18 18 Rate Blood Pressure 186/85 158/80 O2 Sat by Pulse 95 95 Oximetry Medical Decision Making - Medical Decision Making Was pt. sent in by a medical professional or institution (, PA, ICT SUPPORT ENGINEER, urgent care, hospital, or fci...) When possible be specific @ -No Did you speak to anyone other than the patient for history (EMS, parent, family, police, friend...)? What history was obtained from this source @ -No Did you review nursing and triage notes (agree or disagree)? Why? @ -I reviewed and agree with nursing and triage notes Were old charts reviewed (outside hosp., previous admission, EMS record, old EKG, old radiological studies, urgent care reports/EKG's, fci records)? Report findings @ -No old charts were reviewed Differential Diagnosis (chest pain, altered mental status, abdominal pain women, abdominal pain men, vaginal bleeding, weakness, fever, dyspnea, syncope, headache, dizziness, GI bleed, back pain, seizure, CVA, palpatations, mental health, musculoskeletal)? @ -Differential Musculoskeletal Muscular strain, contusion, ligament sprain, fracture, arthritis, septic arthritis, bursitis, cellulitis, muscle spasm, nerve compression, DVT, arterial occlusion, herpes zoster, electrolyte abnormality, tumor.... This is not meant to be in all inclusive list EKG interpreted by me (3pts min.). @ -None X-rays interpreted by me (1pt min.). @ -None done CT interpreted by me (1pt min.). @ -None done U/S interpreted by me (1pt. min.). @ -None done What testing was considered but not performed or refused? (CT, X-rays, U/S, labs)? Why? @ -None What meds were considered but not given or refused? Why? @ -None Did you discuss the management of the patient with other professionals (professionals i.e. , PA, ICT SUPPORT ENGINEER, lab, RT, psych nurse, social work assistant, crown perforator operator, teacher, chief learning officer, complex case manager)? Give summary @ -No Was smoking cessation discussed for >3mins.? @ -No Was critical care preformed (if so, how long)? @ -No Were there social determinants of health that impacted care today? How? (Homelessness, low income, unemployed, alcoholism, drug addiction, transportation, low edu. Level, literacy, decrease access to med. care, halfway, rehab)? @ -No Was there de-escalation of care discussed even if they declined (Discuss DNR or withdrawal of care, Hospice)? DNR status @ -No What co-morbidities impacted this encounter? (DM, HTN, Smoking, COPD, CAD, Cancer, CVA, ARF, Chemo, Hep., AIDS, mental health diagnosis, sleep apnea, morbid obesity)? @ -None Was patient admitted / discharged? Hospital course, mention meds given and route, prescriptions, significant lab abnormalities, going to OR and other pertinent info. @ -Discharge. 63-year-old female presented to the ER with a chief complaint of left hip pain. Patient underwent total hip arthroplasty in July [address] Balderas. Exam remarkable for a healed surgical incision over left lateral hip. There is mild erythema with minimal serosanguineous drainage. No fluctuance or purulent drainage present. Right lower extremity neurovascular intact. Patient denies any fevers, chills or night sweats. Vital stable upon arrival. At this time outpatient therapy appropriate. Keflex prescribed, first dose in the ER. Extremely strict return parameters discussed with patient who expressed verbal understanding and agreement. Advise close follow-up with Dr. Balderas. Patient verbally expressed understanding and agreement with care plan. Case discussed with ED attending, Dr. Medina. Undiagnosed new problem with uncertain prognosis? @ -No Drug Therapy requiring intensive monitoring for toxicity (Heparin, Nitro, Insulin, Cardizem)? @ -No Were any procedures done? @ -No Diagnosis/symptom? @ -Cellulitis Acute, or Chronic, or Acute on Chronic? @ -Acute Uncomplicated (without systemic symptoms) or Complicated (systemic symptoms)? @ -Uncomplicated Side effects of treatment? @ -No Exacerbation, Progression, or Severe Exacerbation? @ -No Poses a threat to life or bodily function? How? (Chest pain, [place], [place], pneumonia, PE, COPD, DKA, ARF, appy, cholecystitis, CVA, Diverticulitis, Homicidal, Suicidal, threat to staff... and all critical care pts) @ -No Disposition Clinical Impression: Cellulitis Disposition: HOME SELF-CARE Condition: Stable Instructions (If sedation given, give patient instructions): Cellulitis (ED) Additional Instructions: Complete full course of Keflex. Monitor for any worsening redness, purulent drainage or increasing pain. Follow-up with Dr. Baldersa on Saturday. Return to the ER for any new or worsening concerns. Prescriptions: Cephalexin [Keflex] 500 mg PO Q6HR 7 Days #28 cap Is patient prescribed a controlled substance at d/c from ED?: No Referrals: Paulina Hickman MD [Primary Care Provider] - 1-2 days Jose Balderas DO [Doctor of Osteopathic Medicine] - 1-2 days Time of Disposition: 19:33
[2024-03-12 20:16] VITALS: BP 158/80; PULSE 73
[2024-03-12] MEDS: CEPHALEXIN 500 MG CAP PO STA (20:16)
== END 2024-03-12 20:19 | disposition home or self-care (01) ==
LOC: EC 18:35
DX: L03.116 Cellulitis of left lower limb (principal); Z88.2 Allergy status to sulfonamides; Z88.1 Allergy status to other antibiotic agents; Z88.5 Allergy status to narcotic agent; Z88.8 Allergy status to other drugs, medicaments and biological substances; Z87.891 Personal history of nicotine dependence
CPT/HCPCS: 87070; 87205; 99283

== ENCOUNTER → 2024-04-07 | Outpatient (CLI) | payer MEDICARE, BC ==
[2024-04-07 12:16] LABS: INR 0.9 (<1.2); Partial Thromboplastin Time 22.9 sec (22.0-30.0); Prothrombin Time 10.4 sec (10.0-12.5)
[2024-04-07 16:02] LABS: HCT 44.1 % (37.2-46.3); HGB 14.2 g/dL (12.0-15.0); MCH 30.7 pg (27.0-32.0); MCHC 32.2 g/dL (32.0-37.0); MCV 95.2 FL (80.0-97.0); Mean Platelet Volume 10.1 FL (9.5-12.2); NRBC Per 100 WBC 0 X 10*3/uL (0.00-0.01); Platelet Count 292 X 10*3/uL (140-440); RBC 4.63 X 10*6/uL (4.10-5.20); RDW 12.7 % (11.5-14.5)
[2024-04-07 16:15] LABS: ALT 24 U/L (8-44); AST 28 U/L (13-35); Albumin 4.7 g/dL (3.8-4.9); Albumin/Globulin Ratio 2.61 Ratio (1.60-3.17); Alkaline Phosphatase 78 U/L (41-126); Blood Urea Nitrogen 10.4 mg/dL (9.0-27.0); Calcium 9.7 mg/dL (8.7-10.3); Carbon Dioxide 27.1 mmol/L (21.6-31.8); Chloride 105 mmol/L (96-109); Globulin 1.8 g/dL (1.6-3.3); Glucose 84 mg/dL (70-110); Potassium 4.3 mmol/L (3.5-5.5); Sodium 144 mmol/L (135-145); Total Bilirubin 0.5 mg/dL (0.3-1.2); Total Protein 6.5 g/dL (6.2-8.2)
== END | disposition home or self-care (01) ==
LOC: LABPAT 10:59
PROVIDERS: ATTEND Orthopaedic Surgery
DX: Z01.818 Encounter for other preprocedural examination (principal); M19.012 Primary osteoarthritis, left shoulder; Z22.322 Carrier or suspected carrier of Methicillin resistant Staphylococcus aureus
CPT/HCPCS: 80053; 85027; 85610; 85730; 87070; 93005

== ENCOUNTER 2024-04-20 08:00 | Day surgery (SDC) | payer BC, MEDICARE ==
[~2024-04-20 08:00] MED LIST changes: +ACETAMINOPHEN TAB 500 MG TAB ONE; -ACETAMINOPHEN TAB 500 MG TAB PO PRN; +DEXAMETHASONE SOD PHOSPHATE 4 MG/ML 1 ML VIAL ONE; +GABAPENTIN 300 MG CAP ONE; -GABAPENTIN 300 MG CAP PO PRN; +GLYCOPYRROLATE 0.2 MG/ML 2 ML VIAL ONE; +LACTATED RINGERS 1,000 ML BAG ONE; +LIDOCAINE 1% INJ 10MG/ML (20 ML MDV) ONE; +MELOXICAM 7.5 MG TAB ONE; -MELOXICAM 7.5 MG TAB PO PRN; +MIDAZOLAM 2 MG/2 ML VIAL ONE; +NEOSTIGMINE 1 MG/ML 10 ML VIAL ONE; +ONDANSETRON 4 MG/2 ML VIAL ONE; +PHENYLEPHRINE-0.9% NACL SYG 1,000 MCG/10 ML SYRINGE ONE; +PROPOFOL 10 MG/ML 20 ML VIAL IV ONE; +ROCURONIUM 10 MG/ML (5 ML VIAL) IV ONE; +ROPIVACAINE 5 MG/ML 30 ML VIAL ONE; +SODIUM CHLORIDE 0.9% IRRIG 1,000 ML BTL IRRIGATION ONE; +SUCCINYLCHOLINE CHLORIDE 200 MG/10 ML VIAL IV ONE; -TRANEXAMIC 1,000 MG/100ML-NACL 1,000 MG in SALINE 1 100ML.BAG IVPB PRN; +TRANEXAMIC 1,000 MG/100ML-NACL PREMIX BAG ONE; +VASOPRESSIN 20 UNIT/ML 1 ML VIAL ONE; +ceFAZolin 1,000 MG VIAL ONE; +ePHEDrine 50 MG/ML 1 ML VIAL ONE; +fentaNYL (PF) 50 MCG/ML 2 ML AMP ONE
[2024-04-20] MEDS ORDERED: HYDROcodone/APAP 7.5-325MG 1 EACH TAB ONE ×2 (22:08)
[2024-04-21] MEDS ORDERED: HYDROmorphone 0.5 MG/0.5 ML SYRINGE ONE ×8 (00:45→14:58)
[2024-04-21] MEDS ORDERED: HYDROcodone/APAP 7.5-325MG 1 EACH TAB ONE ×4 (04:45→11:33)
[2024-04-23] MEDS ORDERED: MORPHINE SULFATE 2 MG/ML SYRINGE ONE ×2 (17:21)
[2024-04-23] MEDS ORDERED: POTASSIUM CHLORIDE 100 ML ONE (17:25)
--- NOTE | 2024-05-01 15:52 | OP ---
OPERATIVE REPORT DATE OF SERVICE : 04/20/2024 PREOPERATIVE DIAGNOSIS: Severe osteoarthritis of the left glenohumeral joint with chronic rotator cuff tear. POSTOPERATIVE DIAGNOSIS: Severe osteoarthritis of the left glenohumeral joint with chronic rotator cuff tear. PROCEDURE: Reverse left total shoulder arthroplasty. IMPLANTS: 1. Biomet comprehensive shoulder system, mini humeral stem, 13 mm porous-coated. 2. Biomet comprehensive reverse shoulder system, humeral bearing, 36 mm, standard. 3. Biomet comprehensive reverse shoulder system, mini humeral tray, 40 mm, +0, standard. 4. Biomet comprehensive reverse shoulder, glenosphere mini base plate, 25 mm. 5. Biomet comprehensive reverse shoulder, central screw, 6.5 mm x 30 mm. 6. Biomet comprehensive reverse shoulder, fixed locking screw, 4.75 x 20 mm, 20 mm, 15 mm, 15 mm. 7. Biomet comprehensive reverse shoulder glenosphere, 36 mm, standard. 8. All components were press-fit. 9. The articulation is metal on polyethylene. ANESTHESIA: General endotracheal intubation. TREASURER [employer]: BATSHEVA Campos. ESTIMATED BLOOD LOSS: 50 mL. CONDITION: Stable. DISPOSITION: PACU. INDICATIONS FOR PROCEDURE: This is a patient, who has presented to my office with severe pain in the left shoulder. X-rays demonstrated severe osteoarthritis of the glenohumeral joint of her shoulder. After failing conservative treatment, we discussed surgical and nonsurgical treatment options at length. The patient wishes to proceed with a reverse total shoulder arthroplasty. The patient is aware of the complications of the procedure which include, but are not limited to, infection, hardware failure, persistent pain, dislocation, and nerve injury. Informed consent was obtained. OPERATIVE FINDINGS: The operative findings are consistent with severe osteoarthritis of left glenohumeral joint with chronic rotator cuff tear. DESCRIPTION OF PROCEDURE: The patient was seen in the preoperative area, consent was reviewed, and the operative site was marked with a skin marker. The patient was then brought to the operating room and given preoperative antibiotics intravenously. The patient was also given 1 g of tranexamic acid intravenously. Prior to being brought to the operating room, interscalene block was performed by Anesthesia in the preoperative area. A general anesthetic was administered by Anesthesia in the operating room. The patient was then placed in a beach chair position with bony prominences well padded and the head secured. Shoulder was then prepped and draped in the usual sterile fashion. [place] time-out was then performed to confirm the patient's name, surgical site, allergies, and consent. A standard deltopectoral approach was performed. The skin and subcutaneous tissue was sharply dissected down to the deltoid fascia. The cephalic vein was identified and retracted medially. The deltopectoral interval was then utilized to expose the subscapularis tendon. Retractor was then placed under the coracobrachialis tendon retracted medially, and the deltoid was retracted laterally. The axillary nerve was palpated and protected throughout the procedure. The subscapularis tendon was then released and retracted medially. The humeral head was then exposed easily. The rotator cuff tear was found to be completely torn and retracted. After the humeral head was exposed, the osteophytes removed with a rongeur. The humeral head was found to have complete loss of articular cartilage consistent with severe osteoarthritis. Next, the humeral stem was prepared. A starter reamer was then used and placed through the humeral head along the axis of the humeral shaft just lateral to the articular surface and just medial to the rotator cuff attachment. Sequential reaming was then performed with the appropriate size reamer, was inserted between the 3 and 4 on the reamer. Next, intramedullary resection guide was then placed on the reamer shaft. It was placed in the appropriate resection depth and angle of 30 degrees of retroversion. The resection guide block was then secured with Steinmann pins. The proximal humerus was then resected. The block was then removed. The humerus was then broached sequentially to the same size of the reamer. After the broach was fully seated, the broach handle was removed and the broach cup was placed to protect the humerus as well the glenoid was prepared. Next, attention was directed to the glenoid. Appropriate retractors were placed around the glenoid and any remaining soft tissue was removed from around the glenoid. After the glenoid was adequately exposed, a threaded glenoid guide was placed into the glenoid and a 3.2 mm Steinmann pin was inserted in the glenoid at the desired angle position, ensuring the pin engaged in the medial cortical wall. Next, the cannulated base plate reamer was then placed over the top of the Steinmann pin. Glenoid was then reamed to the appropriate depth. The glenoid reamer was then removed, leaving the Steinmann pin. The glenoid implant was then placed on the end of the cannulated base plate impacted. The base plate was then impacted fully into the glenoid. Next, a 6.5 mm central screw was placed, which afforded excellent fixation. The 4 peripheral locking screws were then drilled and measured and placed. Next, the appropriate glenosphere was opened and impacted into the glenoid base plate. Attention was directed to the humerus. Next, a trial humeral tray was placed on the humeral trial and the shoulder was reduced. The shoulder was taken through a full range of motion, found to be stable. The shoulder was gently dislocated and the trial humerus and humeral tray were removed. The final humeral stem was impacted and the final humeral tray was impacted as well. The shoulder was then relocated. Again, the shoulder was taken through range of motion and found to have no instability. Shoulder was then irrigated with pulsatile lavage. The shoulder was then irrigated with IrriSept solution. A second dose of 1 g of tranexamic acid was given intravenously. Subscapularis was then repaired with #1 Vicryl. The deltopectoral interval was then closed with #1 Vicryl as well. Subcutaneous tissues were closed with 3-0 Vicryl followed by 3-0 Stratafix suture. Exofin glue was placed on the skin. Sterile dressing was applied, the patient was transferred to recovery room in an arm sling in stable condition. Pipe Bender, BATSHEVA Campos, was required due to the complexity of surgery and the need for a skilled interior design assistant. MMODL / IJN: [id number] /
--- NOTE | 2024-06-09 14:01 | XR ---
Patient Amira Garcia J ID [id number] EXAMINATION TYPE: XR shoulder limited LT DATE OF EXAM: 04/20/2024 COMPARISON: None available during PACS downtime HISTORY: Left shoulder replacement TECHNIQUE: AP left shoulder FINDINGS: Glenoid and humeral components from a left shoulder prosthesis in place. Postsurgical soft tissue changes are evident. No acute fractures evident on this AP projection. IMPRESSION: 1. No acute fractures post left shoulder replacement.
== END 2024-04-21 15:16 | disposition home or self-care (01) ==
LOC: OR 08:00 → DISRECOVER 08:40 → UNDOADMIN 08:40 → DISRECOVER 10:00 → OR 04-21 15:16 → UNDODISIN 04-21 15:16
PROVIDERS: ATTEND Orthopaedic Surgery
DX: M19.012 Primary osteoarthritis, left shoulder (principal); M75.122 Complete rotator cuff tear or rupture of left shoulder, not specified as traumatic; I10 Essential (primary) hypertension; E78.49 Other hyperlipidemia; Z79.899 Other long term (current) drug therapy; Z88.2 Allergy status to sulfonamides; Z88.8 Allergy status to other drugs, medicaments and biological substances; Z85.3 Personal history of malignant neoplasm of breast; Z96.652 Presence of left artificial knee joint; Z96.642 Presence of left artificial hip joint; Z87.891 Personal history of nicotine dependence
CPT/HCPCS: 64415

== ENCOUNTER → 2024-07-13 | Outpatient (CLI) | payer MEDICARE ==
[2024-07-14 02:58] LABS: Immunoglobulin M <35.0 mg/dL (40.0-280.0)
== END | disposition home or self-care (01) ==
LOC: LABWHC1 16:10
PROVIDERS: ATTEND Internal Medicine
DX: D83.9 Common variable immunodeficiency, unspecified (principal)
CPT/HCPCS: 36415; 82784

== ENCOUNTER 2024-07-21 08:40 | Day surgery (SDC) | payer MEDICARE ==
[2024-07-20 10:54] VITALS: BMI 39.9
[2024-07-21 09:03] VITALS: TEMP 97.1
[2024-07-21] MEDS: IV FLUID CONTINUATION 1,000 ML IV ONE (09:05)
[2024-07-21 09:11] LABS: Glucose,Whole Blood 103 mg/dL (70-110)
[2024-07-21] MEDS: LACTATED RINGERS 1,000 ML IV SCH (09:11)
[2024-07-21] MEDS ORDERED: PROPOFOL 10 MG/ML 20 ML VIAL IV ONE (09:39)
--- NOTE | 2024-07-21 09:51 | P.PCN ---
Date of Procedure: 07/21/24 Procedure(s) Performed: BRIEF HISTORY: Patient is a 64-year-old pleasant white female scheduled for an elective colonoscopy as a part of evaluation by history of colon polyps. PROCEDURE PERFORMED: Colonoscopy with biopsy. PREOPERATIVE DIAGNOSIS: History of colon polyps. IV sedation per Anesthesia. PROCEDURE: After informed consent was obtained, the patient, was brought into the endoscopy unit. IV sedation was administered by Anesthesia under continuous monitoring. Digital rectal examination was normal. Initially the Olympus CF-160 flexible video colonoscope was then inserted in the rectum, gradually advanced into the cecum without any difficulty. Careful examination was performed as the scope was gradually being withdrawn. Ileocecal valve and the appendiceal orifice were visualized and appeared normal. Prep was excellent. Mucosa of the cecum, had a 3 mm polyp that was removed by cold biopsy. Rest of the ascending colon, transverse colon, descending colon, sigmoid colon, and rectum appeared normal. Sigmoid diverticulosis retroflexion was performed in the rectum and no lesions were seen. The patient tolerated the procedure well. IMPRESSION: 3 mm cecal polyp status post cold biopsy Scattered sigmoid diverticula. RECOMMENDATIONS: Findings of this examination were discussed with the patient as well as her family. She was advised to follow-up with the biopsy results. If the biopsy reveals adenoma she can have repeat colonoscopy in 5 years..
[2024-07-21 10:13] VITALS: BP 103/64; PULSE 68; RESP 18
== END 2024-07-21 10:38 | disposition home or self-care (01) ==
LOC: ORWHC2ENDO 08:40
PROVIDERS: ATTEND Internal Medicine Gastroenterology
DX: K63.5 Polyp of colon (principal); K57.30 Diverticulosis of large intestine without perforation or abscess without bleeding; I10 Essential (primary) hypertension; E78.5 Hyperlipidemia, unspecified; G47.33 Obstructive sleep apnea (adult) (pediatric); F32.A Depression, unspecified; F41.9 Anxiety disorder, unspecified; Z88.2 Allergy status to sulfonamides; Z88.5 Allergy status to narcotic agent; Z79.899 Other long term (current) drug therapy
CPT/HCPCS: 45380; J2704; 88305

== ENCOUNTER → 2024-11-12 | Outpatient (CLI) | payer MEDICARE ==
[2024-11-12 15:03] LABS: Basophils # (A) 0.05 X 10*3/uL (0.00-0.10); Basophils % (A) 0.9 %; Eosinophils # (A) 0.22 X 10*3/uL (0.04-0.35); Eosinophils % (A) 4.2 %; HCT 42.4 % (37.2-46.3); HGB 14.1 g/dL (12.0-15.0); Lymphocytes # (A) 1.67 X 10*3/uL (0.90-5.00); Lymphocytes % (A) 31.6 %; MCH 30.5 pg (27.0-32.0); MCHC 33.3 g/dL (32.0-37.0); MCV 91.8 FL (80.0-97.0); Mean Platelet Volume 10.5 FL (9.5-12.2); Monocytes # (A) 0.46 X 10*3/uL (0.20-1.00); Monocytes % (A) 8.7 %; NRBC Per 100 WBC 0 X 10*3/uL (0.00-0.01); Neutrophils # (A) 2.87 X 10*3/uL (1.80-7.70); Neutrophils % (A) 54.4 %; Platelet Count 280 X 10*3/uL (140-440); RBC 4.62 X 10*6/uL (4.10-5.20); WBC 5.28 X 10*3/uL (4.50-10.00)
[2024-11-12 15:12] LABS: ALT 20 U/L (8-44); AST 24 U/L (13-35); Albumin 4.5 g/dL (3.8-4.9); Albumin/Globulin Ratio 2.37 Ratio (1.60-3.17); Alkaline Phosphatase 82 U/L (41-126); BUN/Creat Ratio 16.56 Ratio (12.00-20.00); Blood Urea Nitrogen 14.9 mg/dL (9.0-27.0); Calcium 9.6 mg/dL (8.7-10.3); Carbon Dioxide 26.1 mmol/L (21.6-31.8); Chloride 105 mmol/L (96-109); Globulin 1.9 g/dL (1.6-3.3); Glucose 106 mg/dL (70-110); Potassium 4.3 mmol/L (3.5-5.5); Sodium 142 mmol/L (135-145); Total Bilirubin 0.6 mg/dL (0.3-1.2); Total Protein 6.4 g/dL (6.2-8.2)
[2024-11-12 15:24] LABS: Immunoglobulin M <35.0 mg/dL (40.0-280.0)
== END | disposition home or self-care (01) ==
LOC: LABWHC1 09:01
PROVIDERS: ATTEND Internal Medicine
DX: R53.83 Other fatigue (principal)
CPT/HCPCS: 36415; 80053; 82784; 85025

== ENCOUNTER → 2025-03-18 | Outpatient (CLI) | payer MEDICARE ==
[2025-03-18 15:26] LABS: Immunoglobulin G 521.0 mg/dL (700.0-1600.0)
[2025-03-18 15:33] LABS: Basophils # (A) 0.05 X 10*3/uL (0.00-0.10); Basophils % (A) 0.9 %; Eosinophils # (A) 0.34 X 10*3/uL (0.04-0.35); Eosinophils % (A) 6.3 %; HCT 42.8 % (37.2-46.3); HGB 13.9 g/dL (12.0-15.0); Immature Grans, Automated 0.20 %; Lymphocytes # (A) 1.82 X 10*3/uL (0.90-5.00); Lymphocytes % (A) 33.8 %; MCH 30.4 pg (27.0-32.0); MCHC 32.5 g/dL (32.0-37.0); MCV 93.7 FL (80.0-97.0); Monocytes # (A) 0.61 X 10*3/uL (0.20-1.00); Monocytes % (A) 11.3 %; NRBC Per 100 WBC 0 X 10*3/uL (0.00-0.01); Neutrophils # (A) 2.55 X 10*3/uL (1.80-7.70); Neutrophils % (A) 47.5 %; Platelet Count 286 X 10*3/uL (140-440); RBC 4.57 X 10*6/uL (4.10-5.20); RDW 12.1 % (11.5-14.5); WBC 5.38 X 10*3/uL (4.50-10.00)
[2025-03-18 15:43] LABS: Immunoglobulin M <35.0 mg/dL (40.0-280.0)
== END | disposition home or self-care (01) ==
LOC: LABWHC1 10:19
PROVIDERS: ATTEND Internal Medicine
DX: J32.9 Chronic sinusitis, unspecified (principal)
CPT/HCPCS: 36415; 82784; 82787; 85025